=== PATIENT | female | born 1940 | race Hispanic/Latino ===

== ENCOUNTER 2016-12-04 16:17 | Inpatient (IN) | payer MEDICARE, BC ==
--- NOTE | 2016-12-04 16:48 | RAD ---
HISTORY: r/o PNA COMPARISON: No prior. FINDINGS: LUNGS: No active pulmonary disease. Low-normal lung volumes. No consolidation PLEURA: No significant pleural effusion identified, no pneumothorax apparent. CARDIOVASCULAR: Top-normal heart size top normal pulmonary vasculature OSSEOUS STRUCTURES: Bilateral shoulder arthrosis. Thoracic spondylosis VISUALIZED UPPER ABDOMEN: Normal. OTHER FINDINGS: None. IMPRESSION: No active disease. No pulmonary infiltrate
--- NOTE | 2016-12-04 17:08 | C.PDOC ---
History Of Present Illness Patient is a 76 y/o female, whose past medical history includes HTN, CAD s/p stent, presents to ED with complaints of shortness of breath for the last 2-3 months. Patient reports having shortness of breath with exertion, and reports associated intermittent chest heaviness. Notes being seen by PMD, Dr. Silveira, who referred patient to ER for further evaluation. Otherwise, denies any headache, dizziness or lightheadedness, fever, chills, cough, back pain, n/v/d, abdominal pain, lower extremity pain/swelling. No other complaints at this time. Time Seen by Provider: 12/04/16 16:27 Chief Complaint (Nursing): Shortness Of Breath History Per: Patient History/Exam Limitations: no limitations Onset/Duration Of Symptoms: Days (2-3 months) Current Symptoms Are (Timing): Still Present Exacerbating Factor(s): Exertion Associated Symptoms: Chest Pain (heaviness). denies: Fever, Chills, Sweating, Bloody Cough, Productive Cough, Heart Racing, Leg/Calf Pain, Ankle/Leg Swelling , Dizziness, Light-headedness, Anxiety, Tingling In Hands Or Face, Musle Spasms In Hands Or Feet Reports Recently: Treated By A Physician Recent travel outside of the [place]: No Additional History Per: Patient Past Medical History Reviewed: Historical Data, Nursing Documentation, Vital Signs Vital Signs: Last Vital Signs Temp 98.7 F 12/04/16 16:22 Pulse 54 L 12/04/16 16:22 Resp 18 12/04/16 17:01 BP 191/84 H 12/04/16 16:22 Pulse Ox 95 12/04/16 17:24 - Medical History PMH: Arthritis, CAD, HTN, Hypercholesterolemia Denies: Depression Surgical History: Appendectomy (pt was 11 yrs old), Cholecystectomy, Coronary Stent - [facility] CORONAR ARTERIOGR-2 CATH (09/30/12) FLUOROSCOPY OF LEFT HEART USING LOW OSMOLAR CONTRAST (10/27/16) FLUOROSCOPY OF MULT COR ART USING L OSM CONTRAST (10/27/16) LEFT HEART CARDIAC CATH (09/30/12) LT HEART ANGIOCARDIOGRAM (09/30/12) MEASURE OF CARDIAC SAMPL & PRESSURE, L HEART, PERC APPROACH (10/27/16) Family History: States: Unknown Family Hx - Social History Hx Tobacco Use: No Hx Alcohol Use: No Hx Substance Use: No Review Of Systems Except As Marked, All Systems Reviewed And Found Negative. Constitutional: Negative for: Fever, Chills Cardiovascular: Positive for: Chest Pain (intermittent chest heaviness). Negative for: Palpitations, Edema, Light Headedness Respiratory: Positive for: Shortness of Breath, SOB with Excertion. Negative for: Cough, Hemoptysis, Sputum, Wheezing Gastrointestinal: Negative for: Nausea, Vomiting, Abdominal Pain, Diarrhea Neurological: Negative for: Headache, Dizziness Physical Exam - Physical Exam Additional Physical Exam Comments: Constitutional: No acute distress. Head: Normocephalic. Atraumatic. Eyes: PERRL. ENT: Moist mucous membranes. Neck: Supple. Cardiovascular: Bradycardia. Radial pulse 2+ bilaterally. Chest: No tenderness. Respiratory: Clear to auscultation bilaterally. GI: Soft. Nontender. Nondistended. Back: No CVA tenderness. Musculoskeletal: No tenderness or swelling of extremities. Skin: No rash. Neurologic: Alert, no focal deficit. ED Course And Treatment - Laboratory Results Result Diagrams: 12/04/16 17:08 12/04/16 17:08 O2 Sat by Pulse Oximetry: 95 (on RA) Pulse Ox Interpretation: Normal Medical Decision Making Medical Decision Making: Blood work, CXR, EKG ordered and reviewed. EKG: Normal Sinus Rhythm at [address] wave elevation or depression. (+ )U wave. Spoke with Dr. Rubio, consult academic affairs vice president, who will see patient today. CXR HISTORY: r/o PNA COMPARISON: No prior. FINDINGS: LUNGS: No active pulmonary disease. Low-normal lung volumes. No consolidation PLEURA: No significant pleural effusion identified, no pneumothorax apparent. CARDIOVASCULAR: Top-normal heart size top normal pulmonary vasculature OSSEOUS STRUCTURES: Bilateral shoulder arthrosis. Thoracic spondylosis VISUALIZED UPPER ABDOMEN: Normal. OTHER FINDINGS: None. IMPRESSION: No active disease. No pulmonary infiltrate Disposition Discussed With : Lloyd Silveira Doctor Will See Patient In The: Hospital - Disposition Disposition: HOSPITALIZED Disposition Time: 17:40 Condition: GUARDED Forms: [facility] (Kenyan) - Clinical Impression Clinical Impression: Symptomatic bradycardia - Scribe Statement The provider has reviewed the documentation as recorded by the Scribcatherine Hunter All medical record entries made by the Scribe were at my direction and personally dictated by me. I have reviewed the chart and agree that the record accurately reflects my personal performance of the history, physical exam, medical decision making, and the department course for this patient. I have also personally directed, reviewed, and agree with the discharge instructions and disposition.
[2016-12-04 17:14] LABS: BASO % 0.5 % (0.0-2.0); EOS # 0.1 K/uL (0.0-0.7); EOS % 1.7 % (0.0-4.0); HEMATOCRIT 38.5 % (34.0-47.0); LYMPH # 2.1 K/uL (1.0-4.3); LYMPH % 31.5 % (20.0-40.0); MEAN CELL VOLUME 85.3 fL (81.0-99.0); MEAN CORPUSCULAR HEMOGLOBIN 28.4 pg (27.0-31.0); MEAN CORPUSCULAR HGB CONC 33.3 g/dL (33.0-37.0); MEAN PLATELET VOLUME 9.6 fL (7.2-11.7); MONO # 0.5 K/uL (0.0-0.8); NRBC % 0.1 % (0.0-2.0); RED CELL DISTRIBUTION WIDTH 14.4 % (11.5-14.5); WHITE BLOOD COUNT 6.6 K/uL (4.8-10.8)
[2016-12-04 17:21] LABS: CHLORIDE 102 mmol/L (98-107); SODIUM 140 mmol/L (132-148)
[2016-12-04 17:23] LABS: GFR AFRICAN-AMERICAN > 60
[2016-12-04 17:24] LABS: ALB/GLOB RATIO 1.6 (1.0-2.1); ALKALINE PHOSPHATASE 51 U/L (38-126); ALT/SGPT 31 U/L (9-52); AST/SGOT 19 U/L (14-36); BILIRUBIN,TOTAL 0.8 mg/dL (0.2-1.3); BLOOD UREA NITROGEN 18 mg/dL (7-17); CALCIUM 8.9 mg/dl (8.6-10.4); CARBON DIOXIDE 26 mmol/L (22-30); GLUCOSE,RANDOM 98 mg/dL (65-105); TOTAL PROTEIN 6.7 g/dL (6.3-8.3)
[2016-12-04] MEDS ORDERED: Enalaprilat 2.5 MG/2 ML IV PRN (18:59)
[2016-12-04] MEDS ORDERED: Enalaprilat 2.5 MG/2 ML ONE (19:04)
[2016-12-04] MEDS ORDERED: Albuterol HFA 90 mcg/actuation (8 g) IH PRN (19:29)
[2016-12-04] MEDS ORDERED: Denosumab 60 mg/ml Sol(Prolia) SC SCH (19:30)
[2016-12-04] MEDS ORDERED: Loperamide Hydrochloride 1 mg/5 ml Cup PO PRN (19:45)
[2016-12-04] MEDS ORDERED: Albuterol 0.083% Inhal Sol (2.5 mg/3 mL) UD IH SCH (20:00)
--- NOTE | 2016-12-04 20:35 | CP.PCM.CON ---
History of Present Illness - History of Present Illness History of Present Illness: 76 F admitted with Bradycardia (2:1 heart block) C/O Dyspnea with minimal exertion H/O CAD s/p stent Patient noticed symptoms since last 1-2 months Review of Systems - Constitutional Constitutional: Fatigue - EENT Eyes: absent: As Per HPI, Blind Spots, Blurred Vision, Change in Vision, Decreased Night Vision, Diplopia, Discharge, Dry Eye, Exophthalmos, Floaters, Irritation, Itchy Eyes, Loss of Peripheral Vision, Pain, Photophobia, Requires Corrective Lenses, Sees Flashes, Spots in Vision, Tunnel Vision, Other Visual Disturbances, Loss of Vision, Other Ears: absent: As Per HPI, Decreased Hearing, Ear Discharge, Ear Pain, Tinnitus, Abnormal Hearing, Disequilibrium, Dizziness, Other Nose/Mouth/Throat: absent: As Per HPI, Epistaxis, Nasal Congestion, Nasal Discharge, Nasal Obstruction, Nasal Trauma, Nose Pain, Post Nasal Drip, Sinus Pain, Sinus Pressure, Bleeding Gums, Change in Voice, Dental Pain, Dry Mouth, Dysphagia, Halitosis, Hoarsness, Lip Swelling, Mouth Lesions, Mouth Pain, Odynophagia, Sore Throat, Throat Swelling, Tongue Swelling, Facial Pain, Neck Pain, Neck Mass, Other - Cardiovascular Cardiovascular: Dyspnea on Exertion. absent: Chest Pain, Leg Edema - Respiratory Respiratory: Dyspnea. absent: Cough - Gastrointestinal Gastrointestinal: absent: Abdominal Pain - Musculoskeletal Musculoskeletal: Abnormal Gait. absent: As Per HPI, Arthralgias, Atrophy, Back Pain, Deformity, Joint Swelling, Limited Range of Motion, Loss of Height, Muscle Cramps, Muscle Weakness, Myalgias, Neck Pain, Numbness, Radiating Pain into Limb, Stiffness, Tingling, Other - Integumentary Integumentary: absent: As Per HPI, Acne, Alopecia, Bleeding Lesions, Change in Hair, Change in Nails, Change in Pigmentation, Changing Lesions, Dry Skin, Erythema, Furuncle, Hirsutism, Lesions, New Lesions, Non-Healing Lesions, Photosensitivity, Pruritus, Rash, Skin Pain, Skin Ulcer, Sores, Striae, Swelling , Unusual Bruising, Wounds, Jaundice, Other - Neurological Neurological: absent: As Per HPI, Abnormal Gait, Abnormal Hearing, Abnormal Movements, Abnormal Speech, Behavioral Changes, Burning Sensations, Confusion, Convulsions, Disequilibrium, Dizziness, Numbness, Focal Weakness, Frequent Falls , Headaches, Lack of Coordination, Loss of Vision, Memory Loss, Paresthesias, Radicular Pain, Restless Legs, Sensory Deficit, Syncope, Tingling, Tremor, Vertigo, Weakness, Other Visual Disturbances, Other - Psychiatric Psychiatric: absent: As Per HPI, Abnormal Sleep Pattern, Anhedonia, Anxiety, Auditory Hallucinations, Behavioral Changes, Change in Appetite, Change in Libido, Confusion, Depression, Difficulty Concentrating, Hallucinations, Homicidal Ideation, Hopelessness, Irritability, Memory Loss, Mood Swings, Panic Attacks, Paranoia, Suicidal Ideation, Visual Hallucinations, Tactile Hallucinations, Other Past Patient History - Infectious Disease Hx of Infectious Diseases: None - Past Social History Smoking Status: Never Smoked - CARDIAC Hx Cardiac Disorders: Yes Hx Hypercholesterolemia: Yes Hx Hypertension: Yes - HEENT Hx Cataracts: Yes (b/l cataract sx) - HEMATOLOGICAL/ONCOLOGICAL Hx Cancer: Yes (breast ca 30 yrs ago, bilateral breast implants inserted soon after) Hx Chemotherapy: No (no chemo no radiation) - MUSCULOSKELETAL/RHEUMATOLOGICAL Hx Arthritis: Yes - GASTROINTESTINAL Hx Gastroesophageal Reflux: Yes - PSYCHIATRIC Hx Depression: No Hx Substance Use: No - SURGICAL HISTORY Hx Appendectomy: Yes (pt was 11 yrs old) Hx Cholecystectomy: Yes Hx Coronary Stent: Yes - ANESTHESIA Hx Anesthesia: Yes Hx Anesthesia Reactions: No Hx Malignant Hyperthermia: No Meds Allergies/Adverse Reactions: Allergies Allergy/AdvReac Type Severity Reaction Status Date / Time Penicillins Allergy RASH Verified 12/04/16 16:20 pcn AdvReac RASH Uncoded 10/24/16 20:32 - Medications Medications: Current Medications Albuterol (Ventolin Hfa 90 Mcg/Actuation (8 G)) 2 puff IH Q4H PRN PRN Reason: Wheezing Albuterol Sulfate (Albuterol 0.083% Inhal Snow (2.5 Mg/3 Ml) Ud) 2.5 mg IH RQID STEFFEN Amlodipine Besylate (Norvasc) 5 mg PO STAT STA Stop: 12/04/16 20:27 Aspirin (Ecotrin) 81 mg PO DAILY STEFFEN Ciprofloxacin (Cipro) 500 mg PO BID STEFFEN Denosumab (Prolia) mg SC Q6M STEFFEN Enalaprilat (Vasotec) 2.5 mg IV Q8 PRN PRN Reason: HYPERTENSION Last Admin: 12/04/16 19:12 Dose: 2.5 mg Enoxaparin Sodium (Lovenox) 80 mg SC Q12 [facility] Home Med (Budesonide/Formoterol Fumarate [Symbicort 160-4.5 Mcg Inhaler]) 2 puff IH BID [facility] Home Med (Clobetasol Propionate/Emoll [Clobetasol Emollnt 0.05% Foam]) 50 gm TP BID [facility] Home Med (Levocetirizine Dihydrochloride [Levocetirizine Dihydrochloride]) 5 mg PO HS [facility] Home Med (Desloratadine [Desloratadine]) 5 mg PO DAILY [facility] Home Med (Fexofenadine Hcl [Fexofenadine Hcl]) 1 tab PO BID [facility] Sodium Chloride (Sodium Chloride 0.9%) 1,000 mls @ 60 mls/hr IV .[id number] STE[facility] Loperamide HCl (Imodium) 2 mg PO DAILY STEFFEN Loperamide HCl (Imodium) 1 mg PO TID PRN PRN Reason: DIARRHEA Montelukast Sodium (Singulair) 10 mg PO HS [facility] Pantoprazole Sodium (Protonix Ec Tab) 40 mg PO DAILY [facility] Rosuvastatin Calcium (Crestor) 10 mg PO HS [facility] Sucralfate (Carafate Tab) 1 gm PO QID [facility] Tiotropium [place] (Spiriva) 1 mcg IH RQD STE[facility] Tiotropium [place] (Spiriva Inhalation Handihaler Device) 1 inhaler INH ONCE ONE Stop: 12/05/16 08:01 Physical Exam - Head Exam Head Exam: ATRAUMATIC, NORMAL INSPECTION - Eye Exam Eye Exam: EOMI, PERRL Pupil Exam: NORMAL ACCOMODATION - ENT Exam ENT Exam: Mucous Membranes Moist, Normal Exam - Neck Exam Neck exam: Positive for: Normal Inspection - Respiratory Exam Respiratory Exam: Clear to Auscultation Bilateral, NORMAL BREATHING PATTERN - Cardiovascular Exam Cardiovascular Exam: Bradycardia, REGULAR RHYTHM, +S1, +S2. absent: JVD - GI/Abdominal Exam GI & Abdominal Exam: Normal Bowel Sounds, Soft - Neurological Exam Neurological exam: Alert, CN II-XII Intact, Reflexes Normal - Psychiatric Exam Psychiatric exam: Normal Mood - Skin Skin Exam: Warm Results - Vital Signs Recent Vital Signs: Last Vital Signs Temp 98.3 F 12/04/16 19:58 Pulse 44 L 12/04/16 20:10 Resp 22 12/04/16 19:58 BP 177/72 H 12/04/16 19:58 Pulse Ox 96 12/04/16 19:58 - Labs Result Diagrams: 12/06/16 08:17 12/06/16 08:17 Assessment & Plan - Assessment and Plan (Free Text) Assessment: 1. Symptomatic bradycardia 2. Dyspnea on minimal exertion 3. CAD h/o stent 4. HTN controlled 5. hyperlipidemia EP consult for PPM Pulmonary consult r/o PE IV Hydration Plan d/w PMD
--- NOTE | 2016-12-04 20:58 | CP.PCM.HP ---
History of Present Illness - History of Present Illness History of Present Illness: cc: fatigue, bradycardia Pt was seen at the office and was to come in after she was seen 3 days ago and Ranexa was discontinued to eliminate the medication as a cause for her bradycardia. Pt says she was still the same as 3 days ago despite discontinuation of the medication. Pt walks a few feet and is short of breath. Denies diaphoresis, acute chest pain, nausea, vomiting in the last few weeks. Pt had gone to [facility] 10/27/2016 where she had a cardiac cath that was unremarkable. Had given pt an idea that it might be what was causing her symptoms after all interventions including treating her for a possible exacerbation of bronchitis. Finally advised today to go to ER for evaluation and admission, end endorsed pt to ER MD as well as Interventional Cardio who had seen pt tonight. Present on Admission - Present on Admission Any Indicators Present on Admission: No History of DVT/PE: No History of Uncontrolled Diabetes: No Urinary Catheter: No Decubitus Ulcer Present: No Review of Systems - Review of Systems Systems not reviewed;Unavailable: Respiratory Distress (with prolonged conversation) - Constitutional Constitutional: Fatigue - EENT Eyes: As Per HPI Additional comments: + epistaxis 1-2x/day the last 4 days - Cardiovascular Cardiovascular: Slow Heart Rate (+ chest pressure, no radiating pain to jaw) - Respiratory Respiratory: Cough - Reproductive: Female Reproductive:Female: Amenorrhea (postmenopausal), Menopausal - Menstruation Menstruation: Amenorrhea - Neurological Neurological: Weakness Past Patient History - Infectious Disease Hx of Infectious Diseases: None - Past Medical History & Family History Past Medical History?: Yes - Past Social History Smoking Status: Never Smoked Cigar Use: No Alcohol: Social Home 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) - CARDIAC Hx Hypercholesterolemia: Yes Hx Hypertension: Yes Other/Comment: no history of CHF, + hx of angina/chest pain - PULMONARY Hx Respiratory Disorders: Yes Hx Asthma: Yes - NEUROLOGICAL Hx Neurological Disorder: No - HEENT Hx Cataracts: Yes (b/l cataract sx) Hx Epistaxis: Yes (1-2 x the last 4 days) - RENAL Hx Chronic Kidney Disease: No - ENDOCRINE/METABOLIC Hx Endocrine Disorders: No - HEMATOLOGICAL/ONCOLOGICAL Hx Cancer: Yes (breast ca 30 yrs ago, bilateral breast implants inserted soon after) Hx Chemotherapy: No (no chemo no radiation) - INTEGUMENTARY Hx Dermatological Problems: No - MUSCULOSKELETAL/RHEUMATOLOGICAL Hx Arthritis: Yes Other/Comment: s/p hip replacement, L in 2014 - GASTROINTESTINAL Hx Gastroesophageal Reflux: Yes - GENITOURINARY/GYNECOLOGICAL Hx Genitourinary Disorders: No - PSYCHIATRIC Hx Depression: No Hx Substance Use: No - SURGICAL HISTORY Hx Appendectomy: Yes (pt was 11 yrs old) Hx Cholecystectomy: Yes Hx Coronary Stent: Yes - ANESTHESIA Hx Anesthesia: Yes Hx Anesthesia Reactions: No Hx Malignant Hyperthermia: No Meds Allergies/Adverse Reactions: Allergies Allergy/AdvReac Type Severity Reaction Status Date / Time Penicillins Allergy RASH Verified 12/04/16 16:20 pcn AdvReac RASH Uncoded 10/24/16 20:32 Physical Exam - Constitutional Appears: In Acute Distress Additional comments: only when walking and with exertion - Head Exam Head Exam: ATRAUMATIC, NORMAL INSPECTION, NORMOCEPHALIC - Eye Exam Eye Exam: Normal appearance, PERRL Pupil Exam: NORMAL ACCOMODATION - ENT Exam ENT Exam: Mucous Membranes Moist, Normal Exam - Neck Exam Neck exam: Positive for: Normal Inspection - Respiratory Exam Respiratory Exam: Clear to Auscultation Bilateral Additional comments: good breath sounds - Cardiovascular Exam Cardiovascular Exam: Bradycardia, REGULAR RHYTHM, +S1, +S2 - GI/Abdominal Exam GI & Abdominal Exam: Normal Bowel Sounds - Rectal Exam Rectal Exam: Deferred - Extremities Exam Extremities exam: Positive for: normal inspection - Back Exam Back exam: NORMAL INSPECTION - Neurological Exam Neurological exam: CN II-XII Intact, Normal Gait, Oriented x3, Reflexes Normal - Psychiatric Exam Psychiatric exam: Normal Affect, Normal Mood - Skin Skin Exam: Dry, Normal Color, Warm Results - Vital Signs Recent Vital Signs: Last Vital Signs Temp 98.3 F 12/04/16 19:58 Pulse 44 L 12/04/16 20:10 Resp 22 12/04/16 19:58 BP 177/72 H 12/04/16 19:58 Pulse Ox 96 12/04/16 19:58 - Labs Result Diagrams: 12/04/16 17:08 12/04/16 17:08 - EKG Data EKG Interpreted by: Other (prolonged Qtc interval with U wave) Rate: Bradycardia - EKG Data When Compared to Previous EKG: Significant Changes - Impressions Impression: bradycardia, unknown etiology Assessment & Plan (1) Symptomatic bradycardia Assessment and Plan: consulted Cardio, Dr. Rubio, after endorsement this afternoon. Plan to rule out PE before any procedure and agree with Pulmonary consultation with Dr. Her Status: Acute Priority: High (2) Chest tightness or pressure Assessment and Plan: monitor O2 sat, and heart rate. Telemetry admission. Status: Acute Decision To Admit - Pt Status Changed To: Hospital Disposition Of: Inpatient - Admit Certification Admit to Inpatient:: After my assessment, the patient will require hospitalization for at least two midnights. This is because of the severity of symptoms shown, intensity of services needed, and/or the medical risk in this patient being treated as an outpatient. - InPatient: Physician Admission Certification:: I hereby certify that pt needs inpatient admission bec of the acuity of pt's symptoms which, if not addressed, will compromise pt's life and place pt's life in danger. - . Bed Request Type: Telemetry Admitting Physician: Lloyd Silveira
[2016-12-04] MEDS ORDERED: Iodixanol 320 MG/ML 100 ML BOTTLE IV ONE (21:20)
[2016-12-04] MEDS: Sodium Chloride 0.9% 1,000 ML IV SCH (21:49)
[2016-12-04] MEDS ORDERED: Home Med 1 UNIT (Levocetirizine Dihydrochloride [Levocetirizine Dihydrochloride] 5 MG) PO SCH (22:00)
[2016-12-04] MEDS ORDERED: Enoxaparin 80 mg Syringe SC SCH (22:00)
[2016-12-05 00:50] LABS: RBC URINE 1 /hpf (0-3); URINE BILIRUBIN NEGATIVE (NEGATIVE); URINE BLOOD NEGATIVE (NEGATIVE); URINE COLOR Yellow (YELLOW); URINE GLUCOSE (UA) NORMAL (Normal); URINE KETONE NEGATIVE (NEGATIVE); URINE LEUKOCYTE ESTERASE NEG Leu/uL (Negative); URINE PROTEIN NEGATIVE (NEGATIVE); URINE UROBILINOGEN NORMAL mg/dL (0.2-1.0); WBC URINE 1 /hpf (0-5)
[2016-12-05] MEDS ORDERED: Tiotropium 18 mcg Cap For Inhalation IH SCH (08:00)
[2016-12-05] MEDS: Albuterol 0.083% Inhal Sol (2.5 mg/3 mL) UD IH SCH ×3 (08:14→16:17)
--- NOTE | 2016-12-05 08:32 | CT ---
CTA chest PE protocol Indication: Rule out PE Technique: Contiguous axial images were obtained through the chest with intravenous contrast enhancement. Sagittal and coronal reconstructions were generated and reviewed. This CT exam was performed using 1 or more of the falling dose reduction techniques: Automated exposure control, adjustment of the MAA and/or kV according to patient size, and/or use of iterative reconstruction technique. IV Contrast: 100 mL Visipaque Radiation dose (DLP): 586.38 MGy-cm. Comparison: Chest x-ray performed 12/04/16 Findings: The mediastinal and hilar vascular structures appear within normal limits. Cardiomegaly. Small pericardial effusion. No large central or segmental pulmonary embolus evident. No focal consolidation. No pleural effusion. No pneumothorax. No suspicious pulmonary nodules measuring greater than 5 mm. Small hiatal hernia. Limited visualized portions of the upper abdomen appear grossly unremarkable. Gallbladder is not visualized, due to cholecystectomy. Bilateral breast prostheses. Numerous punctate calcifications throughout bilateral breast soft tissues. Question presence of spiculated soft tissue attenuation mass measuring approximately 15 mm, lower outer quadrant of the left breast (series 3, image 63) ; recommend dedicated breast imaging for further evaluation. Degenerative changes. Impression: No large central or segmental pulmonary embolism identified. No focal consolidation. No pleural effusion. No pneumothorax. Cardiomegaly. Small pericardial effusion. Spiculated soft tissue attenuation mass in the left breast. Recommend dedicated breast imaging. Malignant neoplasm cannot be excluded. Preliminary impression was provided by virtual radiologic.
--- NOTE | 2016-12-05 09:01 | CP.PCM.CON ---
History of Present Illness - History of Present Illness History of Present Illness: Dr. Rubio has asked me to see this patient with symptomatic bradycardia. Primary doctor is Dr. Ale Silveira. This is a pleasant 76 yo woman with a CV history of HTN, hypercholesterolemia, CAD with previous PCI. Her medical history also includes breast cancer with preivous bilateral breast implants. She has been plagued by dyspnea on exertion for severalmonths. Cardiac cath revealed no significant obstructive CAD. Echocardiogram revealed no significant valvular disease. She has been noted to be significantly bradycardic so recently her ranexa was discontinued but she has continued to have dyspena. They dyspnea is located in chest. No associated dizziness. No modifying facotors. Duration minutes. ECG reveals 2:1 AV block. Sinus rate has been 90-100 but ventricular response has been in 40's. Also of note, CTA to exclude presence of pulmonary embolism incidentally discovered a "spiculated mass" on lateral aspet of left breast. There are bilateral calcifications in both breast areas, but this 15mm mass in left upper outer portion of breast will need further investigation. She has previously had bilateral breast implants placed after mastectomy. PMEDx: HTN, Hypercholesterolemia, breast cancer s/p bilat mastectomy and implant , CAD, s/p PCI, s/p cataract, s/p L hip, OA, s/p CCY, s/p appy SocialHx: No current tobacco use, rare alcohol use FamilyHx: no premature CAD or sudden . ECG 12/04/16: SR at 96 with 2:1 block. QRS 90 NSRA Cath 10/27/16 LM ok LAD prox 50 RCA non-obstructive CxL non-obstrutive PAP 42/17, PCWP 12 CT chest 12/04/16 No PE spiculated L breast mass 15mm diffuse calcifications s/p bialteral breast implant Review of Systems - Constitutional Constitutional: absent: Chills - EENT Eyes: absent: Blind Spots, Diplopia Ears: absent: Decreased Hearing Nose/Mouth/Throat: absent: Nasal Obstruction, Nasal Trauma, Sinus Pain - Breasts Breasts: absent: Change in Shape - Cardiovascular Cardiovascular: Dyspnea on Exertion. absent: Claudication, Edema, Irregular Heart Rhythm, Leg Edema, Palpitations - Respiratory Respiratory: Dyspnea, Dyspnea on Exertion. absent: Hemoptysis, Wheezing - Gastrointestinal Gastrointestinal: absent: Abdominal Pain - Genitourinary Genitourinary: absent: Change in Urinary Stream - Musculoskeletal Musculoskeletal: Arthralgias - Integumentary Integumentary: absent: Erythema - Neurological Neurological: absent: Syncope - Psychiatric Psychiatric: absent: Anxiety, Confusion, Depression - Endocrine Endocrine: absent: Cold Intolorance, Heat Intolorance Past Patient History - Infectious Disease Hx of Infectious Diseases: None - Past Medical History & Family History Past Medical History?: Yes - Past Social History Smoking Status: Never Smoked Cigar Use: No Alcohol: Social Home 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) - CARDIAC Hx Hypercholesterolemia: Yes Hx Hypertension: Yes Other/Comment: no history of CHF, + hx of angina/chest pain - PULMONARY Hx Respiratory Disorders: Yes Hx Asthma: Yes - NEUROLOGICAL Hx Neurological Disorder: No - HEENT Hx Cataracts: Yes (b/l cataract sx) Hx Epistaxis: Yes (1-2 x the last 4 days) - RENAL Hx Chronic Kidney Disease: No - ENDOCRINE/METABOLIC Hx Endocrine Disorders: No - HEMATOLOGICAL/ONCOLOGICAL Hx Cancer: Yes (breast ca 30 yrs ago, bilateral breast implants inserted soon after) Hx Chemotherapy: No (no chemo no radiation) - INTEGUMENTARY Hx Dermatological Problems: No - MUSCULOSKELETAL/RHEUMATOLOGICAL Hx Arthritis: Yes Other/Comment: s/p hip replacement, L in 2014 - GASTROINTESTINAL Hx Gastroesophageal Reflux: Yes - GENITOURINARY/GYNECOLOGICAL Hx Genitourinary Disorders: No - PSYCHIATRIC Hx Depression: No Hx Substance Use: No - SURGICAL HISTORY Hx Appendectomy: Yes (pt was 11 yrs old) Hx Cholecystectomy: Yes Hx Coronary Stent: Yes - ANESTHESIA Hx Anesthesia: Yes Hx Anesthesia Reactions: No Hx Malignant Hyperthermia: No Meds Allergies/Adverse Reactions: Allergies Allergy/AdvReac Type Severity Reaction Status Date / Time Penicillins Allergy RASH Verified 12/04/16 16:20 pcn AdvReac RASH Uncoded 10/24/16 20:32 - Medications Medications: Current Medications Albuterol (Ventolin Hfa 90 Mcg/Actuation (8 G)) 2 puff IH Q4H PRN PRN Reason: Wheezing Albuterol Sulfate (Albuterol 0.083% Inhal [place] (2.5 Mg/3 Ml) Ud) 2.5 mg IH RQID STEFFEN Last Admin: 12/05/16 08:14 Dose: Not Given Denosumab (Prolia) mg SC Q6M STEFFEN Enalaprilat (Vasotec) 2.5 mg IV Q8 PRN PRN Reason: HYPERTENSION Last Admin: 12/04/16 19:12 Dose: 2.5 mg Heparin Sodium (Porcine) (Heparin) 5,000 units SC Q8 [facility] Home Med (Budesonide/Formoterol Fumarate [Symbicort 160-4.5 Mcg Inhaler]) 2 puff IH BID [facility] Home Med (Levocetirizine Dihydrochloride [Levocetirizine Dihydrochloride]) 5 mg PO HS [facility] Sodium Chloride (Sodium Chloride 0.9%) 1,000 mls @ 60 mls/hr IV .[id number] [facility] Last Admin: 12/04/16 21:49 Dose: 60 mls/hr Loperamide HCl (Imodium) 2 mg PO DAILY [facility] Loperamide HCl (Imodium) 1 mg PO TID PRN PRN Reason: DIARRHEA Montelukast Sodium (Singulair) 10 mg PO HS [facility] Last Admin: 12/04/16 21:49 Dose: 10 mg Pantoprazole Sodium (Protonix Ec Tab) 40 mg PO DAILY [facility] Rosuvastatin Calcium (Crestor) 10 mg PO HS [facility] Last Admin: 12/04/16 21:49 Dose: 10 mg Tiotropium [place] (Spiriva) 1 mcg IH RQD [facility] Physical Exam - Constitutional Appears: Well, Non-toxic - Head Exam Head Exam: ATRAUMATIC, NORMAL INSPECTION - Eye Exam Eye Exam: EOMI, Normal appearance, PERRL Pupil Exam: PERRL - ENT Exam ENT Exam: Mucous Membranes Moist - Neck Exam Neck exam: Positive for: Normal Inspection - Respiratory Exam Respiratory Exam: NORMAL BREATHING PATTERN. absent: Wheezes - Cardiovascular Exam Cardiovascular Exam: REGULAR RHYTHM, Systolic Murmur - GI/Abdominal Exam GI & Abdominal Exam: Normal Bowel Sounds - Neurological Exam Neurological exam: Alert, CN II-XII Intact, Oriented x3 - Psychiatric Exam Psychiatric exam: Normal Affect, Normal Mood - Skin Skin Exam: Normal Color, Warm Results - Vital Signs Recent Vital Signs: Last Vital Signs Temp 98.3 F 12/05/16 08:28 Pulse 48 L 12/05/16 08:28 Resp 20 12/05/16 08:28 BP 144/62 12/05/16 08:28 Pulse Ox 97 12/05/16 08:28 - Labs Result Diagrams: 12/04/16 17:08 08/24/17 17:08 Labs: Laboratory Results - last 24 hr 12/05/16 00:44 Urine Color Yellow Urine Clarity Clear Urine pH 5.0 Ur Specific [place] 1.010 Urine Protein Negative Urine Glucose (UA) Normal Urine Ketones Negative Urine Blood Negative Urine Nitrate Negative Urine Bilirubin Negative Urine Urobilinogen Normal Ur Leukocyte Esterase Neg Urine WBC (Auto) 1 Urine RBC (Auto) 1 Ur Squamous Epith Cells 2
[2016-12-05] MEDS: Pantoprazole 40 mg EC Tab PO SCH (09:14)
[2016-12-05] MEDS ORDERED: DESLORATADINE 5 MG PO SCH ×2 (10:00)
[2016-12-05] MEDS ORDERED: BUDESONIDE IH SCH (10:00)
[2016-12-05] MEDS ORDERED: FORMOTEROL FUMARATE IH SCH (10:00)
[2016-12-05] MEDS ORDERED: EMOLL TP SCH ×2 (10:00)
[2016-12-05] MEDS ORDERED: FEXOFENADINE HCL PO SCH ×2 (10:00)
[2016-12-05] MEDS ORDERED: CLOBETASOL PROPIONATE TP SCH ×2 (10:00)
[2016-12-05] MEDS ORDERED: Lidocaine 1% Inj (20ml) ONE (11:12)
[2016-12-05] MEDS ORDERED: Clindamycin 600mg/50ml NS 600 MG/50 ML BAG IVPB ONE (11:12)
[2016-12-05] MEDS ORDERED: Bacitracin 50,000 UNIT in Sodium Chloride 0.9% Irrig 1,000 ML IR SCH (11:18)
[2016-12-05] MEDS ORDERED: Lactated Ringer's 1,000 ML IV ONE (11:25)
[2016-12-05] MEDS ORDERED: Midazolam 2 MG/2 ML VIAL ONE (11:34)
[2016-12-05] MEDS ORDERED: Propofol 10 mg/ml Inj (20 ML) ONE (11:34)
[2016-12-05] MEDS ORDERED: Iohexol 240 (50 ml) ONE (11:55)
--- NOTE | 2016-12-05 11:59 | CP.PCM.CON ---
History of Present Illness - History of Present Illness History of Present Illness: Reason for consult: shortness of breath and r/o PE The patient is a 76 year old female with a past medical history of CAD s/p coronary stent placement, HTN, hypercholesterolemia who presented the emergency department last night for fatigue and dyspnea on exertion for the past 2-3 months. She also reported intermittent chest heaviness. Three days ago she saw her PMD (Dr. Silveira) who discontinued Ranexa as a possible cause of her bradycardia. She returned to Dr. Beltre office yesterday and her bradycardia had not resolved. She was sent from the office to the ED for further evaluation and admitted to the medical floor for telemetry monitoring. Patient seen and examined bedside this AM. As per patient, Dr. Conner (EP) will place pacemaker this afternoon. Shortness of breath most likely cardiac related (ventricular bradycardia secondary to AV block). PE is unlikely at this time. Patient denied chest pain, tachypnea, leg edema/pain, f/c. PMHx: Arthritis, CAD, HTN, Hypercholesterolemia, bilateral cataracts, breast cancer (30 years ago), GERD, OA Surg Hx: Appendectomy (at 11yo), cholecystectomy, coronary stent, cardiac cath , cataract surgery, mastectomy with reconstruction (breast implants), hip replacement Family hx: denies Social hx: denies tobacco and drug use, social ETOH use Allergies: penicillin (rash) PMD: Dr. Silveira ECG (12/04/16): sinus rhythm at 96 bpm with 2:1 AV block. CXR (12/04/16): No active disease. No pulmonary infiltrate CT Chest with IV contrast (12/04/16): No large central or segmental pulmonary embolism identified. No focal consolidation. No pleural effusion. No pneumothorax. Cardiomegaly. Small pericardial effusion. Spiculated soft tissue attenuation mass in the left breast. Recommend dedicated breast imaging. Malignant neoplasm cannot be excluded. Echo: LV EF 61% Cardiac Cath (10/27/16): Left main, RCA and CXL not obstructed, proximal LAD 50 % obstructed, Pulm artery pressure 42/, PCWP 12. 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) - CARDIAC Hx Hypercholesterolemia: Yes Hx Hypertension: Yes Other/Comment: no history of CHF, + hx of angina/chest pain - PULMONARY Hx Respiratory Disorders: Yes Hx Asthma: Yes - NEUROLOGICAL Hx Neurological Disorder: No - HEENT Hx Cataracts: Yes (b/l cataract sx) Hx Epistaxis: Yes (1-2 x the last 4 days) - RENAL Hx Chronic Kidney Disease: No - ENDOCRINE/METABOLIC Hx Endocrine Disorders: No - HEMATOLOGICAL/ONCOLOGICAL Hx Cancer: Yes (breast ca 30 yrs ago, bilateral breast implants inserted soon after) Hx Chemotherapy: No (no chemo no radiation) - INTEGUMENTARY Hx Dermatological Problems: No - MUSCULOSKELETAL/RHEUMATOLOGICAL Hx Arthritis: Yes Other/Comment: s/p hip replacement, L in 2014 - GASTROINTESTINAL Hx Gastroesophageal Reflux: Yes - GENITOURINARY/GYNECOLOGICAL Hx Genitourinary Disorders: No - PSYCHIATRIC Hx Depression: No Hx Substance Use: No - SURGICAL HISTORY Hx Appendectomy: Yes (pt was 11 yrs old) Hx Cholecystectomy: Yes Hx Coronary Stent: Yes - ANESTHESIA Hx Anesthesia: Yes Hx Anesthesia Reactions: No Hx Malignant Hyperthermia: No Meds Allergies/Adverse Reactions: Allergies Allergy/AdvReac Type Severity Reaction Status Date / Time Penicillins Allergy RASH Verified 12/04/16 16:20 pcn AdvReac RASH Uncoded 10/24/16 20:32 - Medications Medications: Current Medications Albuterol (Ventolin Hfa 90 Mcg/Actuation (8 G)) 2 puff IH Q4H PRN PRN Reason: Wheezing Albuterol Sulfate (Albuterol 0.083% Inhal [place] (2.5 Mg/3 Ml) Ud) 2.5 mg IH RQID STEFFEN Last Admin: 12/05/16 08:14 Dose: Not Given Denosumab (Prolia) mg SC Q6M [facility] Enalaprilat (Vasotec) 2.5 mg IV Q8 PRN PRN Reason: HYPERTENSION Last Admin: 12/04/16 19:12 Dose: 2.5 mg Heparin Sodium (Porcine) (Heparin) 5,000 units SC Q8 [facility] Home Med (Budesonide/Formoterol Fumarate [Symbicort 160-4.5 Mcg Inhaler]) 2 puff IH BID [facility] Home Med (Levocetirizine Dihydrochloride [Levocetirizine Dihydrochloride]) 5 mg PO HS [facility] Sodium Chloride (Sodium Chloride 0.9%) 1,000 mls @ 60 mls/hr IV .[id number] [facility] Last Admin: 12/04/16 21:49 Dose: 60 mls/hr Bacitracin 50,000 unit/ Sodium (Chloride) 1,000 mls @ 1,000 mls/hr IR .Q1H [facility] Stop: 12/05/16 12:17 Loperamide HCl (Imodium) 2 mg PO DAILY [facility] Last Admin: 12/05/16 09:14 Dose: Not Given Loperamide HCl (Imodium) 1 mg PO TID PRN PRN Reason: DIARRHEA Montelukast Sodium (Singulair) 10 mg PO [facility] Last Admin: 12/04/16 21:49 Dose: 10 mg Pantoprazole Sodium (Protonix Ec Tab) 40 mg PO DAILY [facility] Last Admin: 12/05/16 09:14 Dose: 40 mg Rosuvastatin Calcium (Crestor) 10 mg PO [facility] Last Admin: 12/04/16 21:49 Dose: 10 mg Tiotropium [place] (Spiriva) 1 mcg IH RQD [facility] Physical Exam - Head Exam Head Exam: ATRAUMATIC, NORMOCEPHALIC - Eye Exam Eye Exam: Normal appearance - ENT Exam ENT Exam: Mucous Membranes Moist - Neck Exam Neck exam: Positive for: Normal Inspection - Respiratory Exam Respiratory Exam: Clear to Auscultation Bilateral - Cardiovascular Exam Cardiovascular Exam: Bradycardia - Extremities Exam Extremities exam: Positive for: normal inspection Results - Vital Signs Recent Vital Signs: Last Vital Signs Temp 98.3 F 12/05/16 08:28 Pulse 48 L 12/05/16 08:28 Resp 20 12/05/16 08:28 BP 144/62 12/05/16 08:28 Pulse Ox 97 12/05/16 08:28 - Labs Result Diagrams: 12/04/16 17:08 12/04/16 17:08 Labs: Laboratory Results - last 24 hr 12/05/16 00:44 Urine Color Yellow Urine Clarity Clear Urine pH 5.0 Ur Specific [place] 1.010 Urine Protein Negative Urine Glucose (UA) Normal Urine Ketones Negative Urine Blood Negative Urine Nitrate Negative Urine Bilirubin Negative Urine Urobilinogen Normal Ur Leukocyte Esterase Neg Urine WBC (Auto) 1 Urine RBC (Auto) 1 Ur Squamous Epith Cells 2 Assessment & Plan (1) Dyspnea Status: Acute Comment: most likely cardiac related. For pacemaker insertion. Continue nebulizer treatment. Pulmonary function test as outpatient. Pulmonary embolism unlikely (2) Chest tightness or pressure Status: Acute (3) Symptomatic bradycardia Status: Acute Priority: High
--- NOTE | 2016-12-05 12:31 | CARD ---
APPROVED REPORT EKG Measurement Heart [id number] <Conclusion> Sinus bradycardia Otherwise normal ECG
[2016-12-05] MEDS ORDERED: HYDROmorphone 0.5 mg/0.5 ml ISec IVP PRN (12:47)
--- NOTE | 2016-12-05 12:50 | PCM.OP ---
Operative Report - Operative Report Date of Surgery/Procedure: 12/05/16 Time of Surgery/Procedure: 12:49 Surgeon: DIPIKA Anesthesia/Sedation: MONITORED CARE Pre-Operative Diagnosis: av BLOCK Post-Operative Diagnosis: AV bLOCK Indication for Surgery: SYMPTOMATIC BRADYCARDIA Operative Findings: psa REPORTED Procedure/Operation Description: ddd ppm VIA AXILLARY VEIN ACCESS Estimated Blood Loss: 30 Complications: NONE Discharge & Condition: none
[2016-12-05] MEDS ORDERED: Oxycodone/Acetaminophen 5/325 mg Tab PO PRN (12:54)
--- NOTE | 2016-12-05 13:27 | CARD ---
APPROVED REPORT EXAM: Two-dimensional and M-mode echocardiogram with Doppler and color Doppler. Other Information Quality : GoodRhythm : Bradycardia Technically limited study due to body habitus. INDICATION Dyspnea Chest Pain BREAST IMPLANT RISK FACTORS Hypertension Hyperlipidemia M-Mode DIMENSIONS RVDd2.19 (2.1-3.2cm)Left Atrium (MM)4.33 (2.5-4.0cm) IVSd0.84 (0.7-1.1cm)Aortic Root2.14 (2.2-3.7cm) LVDd4.96 (4.0-5.6cm)Aortic Cusp Exc.1.52 (1.5-2.0cm) PWd0.82 (0.7-1.1cm)FS (%) 33 % LVDs3.32 (2.0-3.8cm)LVEF (%)61 (>50%) Aortic Valve AoV Peak Wsxnlsfb951.5cm/sAoV VTI48.3cmAO Peak GR.15mmHg AO Mean GR.8mmHg Mitral Valve MV E Hysaqvas360.2cm/sMV A Uhhnyfos61.0cm/sE/A ratio1.4 TDI E/Lateral E'0.0E/Medial E'0.0 Tricuspid Valve TR Peak [id number]/sTR Peak Gr.26jxXwYLNX48hvVy <Conclusion> TECHNICALLY DIFFICULT STUDT, SHOWING MILDLY DILATED LA , GROSSLY NORMAL LV FUNCTION. CALCIFIC AORTIC VALVE AND ROOT. MODERATE MR. CLINICAL CORRELATION ADVISED.
--- NOTE | 2016-12-05 14:11 | RAD ---
HISTORY: pacemaker COMPARISON: 12/04/2016 FINDINGS: LUNGS: There is subsegmental atelectasis in the right mid lung and left mid lung. There is mild pulmonary venous congestion. PLEURA: There is a small right pneumothorax status post placement of right-sided dual lead transvenous permanent pacing device, the pleural margin reaches the posterior and of the 4th rib. . No large pleural effusions. CARDIOVASCULAR: There is mild cardiomegaly. There is interval placement of a right-sided dual lead transvenous permanent pacing device with leads terminating in the right atrium and right ventricle. OSSEOUS STRUCTURES: No significant abnormalities. VISUALIZED UPPER ABDOMEN: Normal. OTHER FINDINGS: None. IMPRESSION: Status post placement of a right-sided dual lead transvenous permanent pacing device, small right pneumothorax. Critical findings were discussed with Dr Amish Cardona on 12/05/2016 at 2:05 p.m.
--- NOTE | 2016-12-05 16:50 | RAD ---
HISTORY: pneumothorax COMPARISON: 12/05/2016 at 12:59 p.m.. FINDINGS: LUNGS: The lungs are well inflated. There is linear scarring in the left lung. PLEURA: No significant pleural effusion identified. There is interval increase in size of right-sided pneumothorax which now appears moderate in size with the pleural margin seen at the posterior end of the 5th rib. CARDIOVASCULAR: The heart is normal in size. There is stable position of a right-sided dual lead transvenous permanent pacing device. OSSEOUS STRUCTURES: No significant abnormalities. VISUALIZED UPPER ABDOMEN: Normal. OTHER FINDINGS: None. IMPRESSION: Interval mild increase in size of a right-sided pneumothorax which now appears moderate in size with the pleural margin at the posterior end of the 5th rib.
--- NOTE | 2016-12-05 16:57 | CP.PCM.CON ---
<BrianTaylor AguileraNatalie - Last Filed: 12/05/16 19:01> History of Present Illness - History of Present Illness History of Present Illness: Patient is a 76 year old female with medical history of HTN, CAD s/p stent placement, hypercholesteremia, who is transferred to the ICU from the floor for monitoring s/p chest tube placement for right-sided pneumothorax. Patient has a 2-3 month history of fatigue and SOB, presented to the ED by her PMD, Dr. Silveira, and was found to have bradycardia and AV block. Patient had a pacemaker placed today, 12/05/16, with Dr. Conner. Following the procedure, patient was found to have a pneumothorax. PMD: Dr. Silveira PMHx: HTN, CAD s/p stent placement (2008), hypercholesteremia SurgHx: appendectomy, cholecystectomy, coronary stent (2008), cardiac cath, cataract surgery, mastectomy with reconstruction, hip replacement FamHx: denies SocHx: denies tobacco, drug use; social drinker Allergies: penicillins Review of Systems - Constitutional Constitutional: absent: Fever, Headache - Cardiovascular Cardiovascular: absent: Chest Pain, Dyspnea - Respiratory Respiratory: Pain with Coughing (sore s/p chest tube and pacemaker placement). absent: Cough, Dyspnea - Gastrointestinal Gastrointestinal: Nausea (s/p chest tube placement). absent: Abdominal Pain, Constipation, Diarrhea, Vomiting - Genitourinary Genitourinary: absent: Dysuria - Musculoskeletal Additional comments: Sore s/p chest tube and pacemaker placement. 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) - CARDIAC Hx Cardiac Disorders: Yes (CAD) Hx Hypercholesterolemia: Yes Hx Hypertension: Yes - PULMONARY Hx Respiratory Disorders: Yes Hx Asthma: Yes - NEUROLOGICAL Hx Neurological Disorder: No - HEENT Hx Cataracts: Yes (b/l cataract sx) Hx Epistaxis: Yes (1-2 x the last 4 days) - RENAL Hx Chronic Kidney Disease: No - ENDOCRINE/METABOLIC Hx Endocrine Disorders: No - HEMATOLOGICAL/ONCOLOGICAL Hx Cancer: Yes (breast ca 30 yrs ago, bilateral breast implants inserted soon after) Hx Chemotherapy: No (no chemo no radiation) - INTEGUMENTARY Hx Dermatological Problems: No - MUSCULOSKELETAL/RHEUMATOLOGICAL Hx Arthritis: Yes - GASTROINTESTINAL Hx Gastroesophageal Reflux: Yes - GENITOURINARY/GYNECOLOGICAL Hx Genitourinary Disorders: No - PSYCHIATRIC Hx Depression: No Hx Substance Use: No - SURGICAL HISTORY Hx Appendectomy: Yes (pt was 11 yrs old) Hx Cholecystectomy: Yes Hx Coronary Stent: Yes - ANESTHESIA Hx Anesthesia: Yes Hx Anesthesia Reactions: No Hx Malignant Hyperthermia: No Meds Home Medications: Home Medication List Medication Instructions Recorded Confirmed Type Albuterol 0.083% [Albuterol 0.083% 2.5 mg IH RQ6 12/07/16 Rx Inhal Snow (2.5 mg/3 ml) UD] Albuterol HFA [Ventolin HFA 90 2 puff IH Q4H PRN inhaler 12/07/16 Rx mcg/actuation (8 g)] Montelukast [Singulair] 10 mg PO HS tab 12/07/16 Rx Rosuvastatin Calcium [Crestor] 10 mg PO HS tab 12/07/16 Rx Valsartan [Diovan] 80 mg PO DAILY #0 12/07/16 12/04/16 Rx Allergies/Adverse Reactions: Allergies Allergy/AdvReac Type Severity Reaction Status Date / Time Penicillins Allergy RASH Verified 12/04/16 16:20 pcn AdvReac RASH Uncoded 10/24/16 20:32 - Medications Medications: Current Medications Albuterol (Ventolin Hfa 90 Mcg/Actuation (8 G)) 2 puff IH Q4H PRN PRN Reason: Wheezing Albuterol Sulfate (Albuterol 0.083% Inhal Snow (2.5 Mg/3 Ml) Ud) 2.5 mg IH RQID [facility] Last Admin: 12/05/16 16:17 Dose: 2.5 mg Denosumab (Prolia) mg SC Q6M [facility] Enalaprilat (Vasotec) 2.5 mg IV Q8 PRN PRN Reason: HYPERTENSION Last Admin: 12/04/16 19:12 Dose: 2.5 mg Heparin Sodium (Porcine) (Heparin) 5,000 units SC Q8 [facility] Last Admin: 12/05/16 14:15 Dose: Not Given Home Med (Budesonide/Formoterol Fumarate [Symbicort 160-4.5 Mcg Inhaler]) 2 puff IH BID [facility] Home Med (Levocetirizine Dihydrochloride [Levocetirizine Dihydrochloride]) 5 mg PO [facility] Sodium Chloride (Sodium Chloride 0.9%) 1,000 mls @ 60 mls/hr IV .[id number] [facility] Last Admin: 12/04/16 21:49 Dose: 60 mls/hr Loperamide HCl (Imodium) 2 mg PO DAILY [facility] Last Admin: 12/05/16 09:14 Dose: Not Given Loperamide HCl (Imodium) 1 mg PO TID PRN PRN Reason: DIARRHEA Montelukast Sodium (Singulair) 10 mg PO [facility] Last Admin: 12/04/16 21:49 Dose: 10 mg Oxycodone/Acetaminophen (Percocet 5/325 Mg Tab) 1 tab PO Q4H PRN PRN Reason: Pain, moderate (4-7) Stop: 12/08/16 12:55 Pantoprazole Sodium (Protonix Ec Tab) 40 mg PO DAILY [facility] Last Admin: 12/05/16 09:14 Dose: 40 mg Rosuvastatin Calcium (Crestor) 10 mg PO [facility] Last Admin: 12/04/16 21:49 Dose: 10 mg Tiotropium [place] (Spiriva) 1 mcg IH RQD [facility] Physical Exam - Head Exam Head Exam: ATRAUMATIC, NORMAL INSPECTION - Eye Exam Eye Exam: EOMI, Normal appearance - ENT Exam ENT Exam: Mucous Membranes Moist - Neck Exam Neck exam: Positive for: Normal Inspection - Respiratory Exam Respiratory Exam: Decreased Breath Sounds, Clear to Auscultation Bilateral, NORMAL BREATHING PATTERN. absent: Rales, Rhonchi, Wheezes - Cardiovascular Exam Cardiovascular Exam: REGULAR RHYTHM, +S1, +S2 - GI/Abdominal Exam GI & Abdominal Exam: Normal Bowel Sounds, Soft. absent: Tenderness - Extremities Exam Extremities exam: Positive for: normal inspection, pedal pulses present. Negative for: pedal edema - Neurological Exam Neurological exam: Alert, Oriented x3 - Psychiatric Exam Psychiatric exam: Normal Affect, Normal Mood - Skin Skin Exam: Dry, Intact, Normal Color, Warm Results - Vital Signs Recent Vital Signs: Last Vital Signs Temp 97.6 F 12/05/16 15:20 Pulse 90 12/05/16 15:20 Resp 20 12/05/16 15:20 BP 129/74 12/05/16 15:20 Pulse Ox 98 12/05/16 15:20 - Labs Result Diagrams: 12/04/16 17:08 12/04/16 17:08 Labs: Laboratory Results - last 24 hr 12/05/16 00:44 Urine Color Yellow Urine Clarity Clear Urine pH 5.0 Ur Specific [place] 1.010 Urine Protein Negative Urine Glucose (UA) Normal Urine Ketones Negative Urine Blood Negative Urine Nitrate Negative Urine Bilirubin Negative Urine Urobilinogen Normal Ur Leukocyte Esterase Neg Urine WBC (Auto) 1 Urine RBC (Auto) 1 Ur Squamous Epith Cells 2 Assessment & Plan (1) Pneumothorax Assessment and Plan: Patient is a 76 year old female with medical history of HTN, CAD s/p stent placement, hypercholesteremia, who is transferred to the ICU from the floor for monitoring s/p chest tube placement for right-sided pneumothorax. Patient has a 2-3 month history of fatigue and SOB, presented to the ED by her PMD, Dr. Silveira, and was found to have bradycardia. Patient had a pacemaker placed today, 12/05/16 , with Dr. Conner. Continue medical management and monitor. Neuro: alert, orientedx3 Pulm: Pneumothorax - CXR: right-sided pneumothorax, moderate size with pleural margin at posterior end of 5th rib. - Surgery consulted- Dr. Sousa, help appreciated - s/p chest tube placement, with suction - Continue medical management- albuterol, ventolin, symbicort, singulaire, spiriva, - Continue O2 via nasal cannula - F/U ABG and CXR CV: S/P Pacemaker placement - Cardiology: Dr. Rubio, Dr. Conner - Continue management for bradycardia - Continue: vasotec, crestor - Continue IV Fluids Endo: no acute issues GI: no acute issues - Continue Protonix Heme: no acute issues Renal: no acute issues ID: no acute issues Prophylaxis: - DVT: SCDs, Heparin 5000sc Q8 - GI: Protonix Status: Acute <Joey Puga - Last Filed: 12/09/16 22:18> History of Present Illness - History of Present Illness History of Present Illness: [facility] Pt with increasing Ptx s/p PPM to have CT placed by surgery. Tx to ICU for monitoring. Add.- Pt is 76 yo female with hx HTN/CAD /Stent /HLD and with fatigue and bradycardia. Pt had PPM placed and noted to have R Ptx. Repeat cxr on NRB showed increasing ptx. and surgery consulted for CT. Pt denied sob . Admits some right chest discomfort ROS- asnoted All-PCN Social- no tob/ etoh/ drugs Meds- reviewed fH- Unknown Alert eldery female, NAD Neck- no jvd Lungs- bilat bs Heart-rr ABd- benign eXt- nontender Neuro- nonfocal Labs, EKG, [id number] A&P Right Ptx s/p PPM S/P Bradycardia HTN HLD CAD /Stents Admit to ICU repeat cxr s/p CT analgesia prn DVT prophylaxis Meds - Medications Medications: Current Medications Albuterol (Ventolin Hfa 90 Mcg/Actuation (8 G)) 2 puff IH Q4H PRN PRN Reason: Wheezing Albuterol Sulfate (Albuterol 0.083% Inhal Snow (2.5 Mg/3 Ml) Ud) 2.5 mg IH RQID [facility] Last Admin: 12/05/16 16:17 Dose: 2.5 mg Denosumab (Prolia) mg SC Q6M [facility] Enalaprilat (Vasotec) 2.5 mg IV Q8 PRN PRN Reason: HYPERTENSION Last Admin: 12/04/16 19:12 Dose: 2.5 mg Heparin Sodium (Porcine) (Heparin) 5,000 units SC Q8 [facility] Last Admin: 12/05/16 14:15 Dose: Not Given Home Med (Budesonide/Formoterol Fumarate [Symbicort 160-4.5 Mcg Inhaler]) 2 puff IH BID [facility] Home Med (Levocetirizine Dihydrochloride [Levocetirizine Dihydrochloride]) 5 mg PO HS [facility] Sodium Chloride (Sodium Chloride 0.9%) 1,000 mls @ 60 mls/hr IV .[id number] [facility] Last Admin: 12/04/16 21:49 Dose: 60 mls/hr Loperamide HCl (Imodium) 2 mg PO DAILY [facility] Last Admin: 12/05/16 09:14 Dose: Not Given Loperamide HCl (Imodium) 1 mg PO TID PRN PRN Reason: DIARRHEA Montelukast Sodium (Singulair) 10 mg PO HS [facility] Last Admin: 12/04/16 21:49 Dose: 10 mg Oxycodone/Acetaminophen (Percocet 5/325 Mg Tab) 1 tab PO Q4H PRN PRN Reason: Pain, moderate (4-7) Stop: 12/08/16 12:55 Pantoprazole Sodium (Protonix Ec Tab) 40 mg PO DAILY [facility] Last Admin: 12/05/16 09:14 Dose: 40 mg Rosuvastatin Calcium (Crestor) 10 mg PO HS [facility] Last Admin: 12/04/16 21:49 Dose: 10 mg Tiotropium [place] (Spiriva) 1 mcg IH RQD [facility] Results - Vital Signs Recent Vital Signs: Last Vital Signs Temp 97.6 F 12/05/16 15:20 Pulse 90 12/05/16 15:20 Resp 20 12/05/16 15:20 BP 129/74 12/05/16 15:20 Pulse Ox 98 12/05/16 15:20 - Labs Result Diagrams: 12/07/16 06:24 12/07/16 06:19 Labs: Laboratory Results - last 24 hr 12/05/16 00:44 Urine Color Yellow Urine Clarity Clear Urine pH 5.0 Ur Specific [place] 1.010 Urine Protein Negative Urine Glucose (UA) Normal Urine Ketones Negative Urine Blood Negative Urine Nitrate Negative Urine Bilirubin Negative Urine Urobilinogen Normal Ur Leukocyte Esterase Neg Urine WBC (Auto) 1 Urine RBC (Auto) 1 Ur Squamous Epith Cells 2
--- NOTE | 2016-12-05 18:45 | CP.PCM.PN ---
Subjective - Date & Time of Evaluation Date of Evaluation: 12/05/16 Time of Evaluation: 18:42 - Subjective Subjective: Pt successfully underwent pacemaker insertion, R side, today, after PE ruled out last night via CT angiogram. Incidental finding of spiculated mass on the L breast which, upon clarification with Dr. Freeman, radiologist on duty today at [facility] ([facility] noted said "mass" to be located at the lateral inferior axilla/axillary tail, L breast. He surmised that it is probably a calcified lymph node or scarring. > Development of pneumothorax after procedure, which i was notified at or around 3pm. Discussed events with Cardio and Pulmonary, and follow on CXR showed increasing size of pneumothorax Intensivisit evaluation at the time showed pt to be comfortable but on O2 by non-rebreather mask. Informed of plans to minimize further complicataions by pulmonary, and found surgical residents at bedside in the initial stages of putting in chest tube when I saw pt approx 1.5 hours later. Pt was comfortable and tolerated the procedure well. Gave orders for IV morphine for pain control if necessary. Objective - Vital Signs/Intake and Output Vital Signs (last 24 hours): Temp Pulse Resp BP Pulse Ox 97.6 F 90 20 129/74 98 12/05/16 15:20 12/05/16 15:20 12/05/16 15:20 12/05/16 15:20 12/05/16 15:20 Intake and Output: 12/05/16 12/05/16 06:59 18:59 Intake Total 530 Balance 530 - Medications Medications: Current Medications Albuterol (Ventolin Hfa 90 Mcg/Actuation (8 G)) 2 puff IH Q4H PRN PRN Reason: Wheezing Albuterol Sulfate (Albuterol 0.083% Inhal Snow (2.5 Mg/3 Ml) Ud) 2.5 mg IH RQID [facility] Last Admin: 12/05/16 16:17 Dose: 2.5 mg Denosumab (Prolia) mg SC Q6M [facility] Enalaprilat (Vasotec) 2.5 mg IV Q8 PRN PRN Reason: HYPERTENSION Last Admin: 12/04/16 19:12 Dose: 2.5 mg Heparin Sodium (Porcine) (Heparin) 5,000 units SC Q8 [facility] Last Admin: 12/05/16 14:15 Dose: Not Given Home Med (Budesonide/Formoterol Fumarate [Symbicort 160-4.5 Mcg Inhaler]) 2 puff IH BID [facility] Home Med (Levocetirizine Dihydrochloride [Levocetirizine Dihydrochloride]) 5 mg PO [facility] Sodium Chloride (Sodium Chloride 0.9%) 1,000 mls @ 60 mls/hr IV .[id number] [facility] Last Admin: 12/04/16 21:49 Dose: 60 mls/hr Loperamide HCl (Imodium) 2 mg PO DAILY [facility] Last Admin: 12/05/16 09:14 Dose: Not Given Loperamide HCl (Imodium) 1 mg PO TID PRN PRN Reason: DIARRHEA Montelukast Sodium (Singulair) 10 mg PO [facility] Last Admin: 12/04/16 21:49 Dose: 10 mg Oxycodone/Acetaminophen (Percocet 5/325 Mg Tab) 1 tab PO Q4H PRN PRN Reason: Pain, moderate (4-7) Stop: 12/08/16 12:55 Pantoprazole Sodium (Protonix Ec Tab) 40 mg PO DAILY [facility] Last Admin: 12/05/16 09:14 Dose: 40 mg Rosuvastatin Calcium (Crestor) 10 mg PO [facility] Last Admin: 12/04/16 21:49 Dose: 10 mg Tiotropium [place] (Spiriva) 1 mcg IH RQD [facility] - Labs Labs: PT 11.6 SECONDS (9.7-12.2) 12/04/16 17:08 INR 1.0 12/04/16 17:08 APTT 32 SECONDS (21-34) 12/04/16 17:08 - Constitutional Appears: No Acute Distress - Head Exam Head Exam: NORMAL INSPECTION, NORMOCEPHALIC - Eye Exam Eye Exam: Normal appearance Pupil Exam: NORMAL ACCOMODATION - ENT Exam ENT Exam: Mucous Membranes Moist, Normal Exam - Neck Exam Neck Exam: Normal Inspection - Respiratory Exam Respiratory Exam: Decreased Breath Sounds, NORMAL BREATHING PATTERN - Cardiovascular Exam Cardiovascular Exam: REGULAR RHYTHM - GI/Abdominal Exam GI & Abdominal Exam: Soft - Rectal Exam Rectal Exam: Deferred - Extremities Exam Extremities Exam: Full ROM, Normal Inspection - Neurological Exam Neurological Exam: Alert, Awake, CN II-XII Intact, Oriented x3 Neuro motor strength exam: Left Upper Extremity: 5, Right Upper Extremity: 4, Left Lower Extremity: 5, Right Lower Extremity: 5 - Psychiatric Exam Psychiatric exam: Normal Affect, Normal Mood - Skin Skin Exam: Dry, Intact, Normal Color, Warm Assessment and Plan (1) Pneumothorax Assessment & Plan: s/p chest tube placement. Will re-evaluate daily. Status: Acute (2) Symptomatic bradycardia Assessment & Plan: appears improved after PPM insertion Status: Resolved (3) Chest tightness or pressure Status: Resolved (4) Hypertension Assessment & Plan: will monitor Status: Chronic
--- NOTE | 2016-12-05 19:07 | CP.PCM.CON ---
History of Present Illness - History of Present Illness History of Present Illness: Cardiothoracic Surgery Consult Note for Dr. Sousa Reason for consult: R pneumothorax 76 F with PMH of s/p pacemaker placement, CAD s/p coronary stent placement, HTN , hypercholesterolemia who presented the emergency department last night for fatigue and shortness of breath. Today, patient had pacemaker placement with Dr. Conner this afternoon. After the procedure, patient had a chest xray which showed R pneumothorax. During interview, patient denied SOB, chest pain, tachypnea, palpitations, fever/chills, abd pain. Admits to nausea. Chest tube was placed at bedside. Patient tolerated the procedure. PMD: Dr. Silveira PMH: Arthritis, CAD, HTN, Hypercholesterolemia, bilateral cataracts, breast cancer (30 years ago), GERD, OA Meds: As per EMR Allergies: penicillin (rash) PSH: Pacemaker plaement, Appendectomy, cholecystectomy, coronary stents, cardiac cath, cataract surgery, mastectomy with reconstruction (breast implants) , hip replacement FH: denies Social: denies tobacco and drug use, social ETOH use Review of Systems - Review of Systems All systems: reviewed and no additional remarkable complaints except (nausea) Past Patient History - Infectious Disease Hx of Infectious Diseases: None - Past Medical History & Family History Past Medical History?: Yes - Past Social History Smoking Status: Never Smoked Cigar Use: No Alcohol: Social 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) - CARDIAC Hx Cardiac Disorders: Yes (CAD) Hx Hypercholesterolemia: Yes Hx Hypertension: Yes - PULMONARY Hx Respiratory Disorders: Yes Hx Asthma: Yes - NEUROLOGICAL Hx Neurological Disorder: No - HEENT Hx Cataracts: Yes (b/l cataract sx) Hx Epistaxis: Yes (1-2 x the last 4 days) - RENAL Hx Chronic Kidney Disease: No - ENDOCRINE/METABOLIC Hx Endocrine Disorders: No - HEMATOLOGICAL/ONCOLOGICAL Hx Cancer: Yes (breast ca 30 yrs ago, bilateral breast implants inserted soon after) Hx Chemotherapy: No (no chemo no radiation) - INTEGUMENTARY Hx Dermatological Problems: No - MUSCULOSKELETAL/RHEUMATOLOGICAL Hx Arthritis: Yes - GASTROINTESTINAL Hx Gastroesophageal Reflux: Yes - GENITOURINARY/GYNECOLOGICAL Hx Genitourinary Disorders: No - PSYCHIATRIC Hx Depression: No Hx Substance Use: No - SURGICAL HISTORY Hx Appendectomy: Yes (pt was 11 yrs old) Hx Cholecystectomy: Yes Hx Coronary Stent: Yes - ANESTHESIA Hx Anesthesia: Yes Hx Anesthesia Reactions: No Hx Malignant Hyperthermia: No Meds Allergies/Adverse Reactions: Allergies Allergy/AdvReac Type Severity Reaction Status Date / Time Penicillins Allergy RASH Verified 12/04/16 16:20 pcn AdvReac RASH Uncoded 10/24/16 20:32 - Medications Medications: Current Medications Albuterol (Ventolin Hfa 90 Mcg/Actuation (8 G)) 2 puff IH Q4H PRN PRN Reason: Wheezing Albuterol Sulfate (Albuterol 0.083% Inhal Snow (2.5 Mg/3 Ml) Ud) 2.5 mg IH RQ6 [facility] Denosumab (Prolia) mg SC Q6M [facility] Enalaprilat (Vasotec) 2.5 mg IV Q8 PRN PRN Reason: HYPERTENSION Last Admin: 12/04/16 19:12 Dose: 2.5 mg Famotidine (Pepcid) 20 mg IVP Q12 [facility] Heparin Sodium (Porcine) (Heparin) 5,000 units SC Q8 [facility] Last Admin: 12/05/16 14:15 Dose: Not Given Home Med (Budesonide/Formoterol Fumarate [Symbicort 160-4.5 Mcg Inhaler]) 2 puff IH BID [facility] Home Med (Levocetirizine Dihydrochloride [Levocetirizine Dihydrochloride]) 5 mg PO HS [facility] Sodium Chloride (Sodium Chloride 0.9%) 1,000 mls @ 60 mls/hr IV .[id number] [facility] Last Admin: 12/04/16 21:49 Dose: 60 mls/hr Loperamide HCl (Imodium) 2 mg PO DAILY [facility] Last Admin: 12/05/16 09:14 Dose: Not Given Loperamide HCl (Imodium) 1 mg PO TID PRN PRN Reason: DIARRHEA Montelukast Sodium (Singulair) 10 mg PO HS [facility] Last Admin: 12/04/16 21:49 Dose: 10 mg Morphine Sulfate (Morphine) 1 mg IV Q4 PRN PRN Reason: Pain, moderate (4-7) Ondansetron HCl (Zofran Inj) 4 mg IVP DAILY@ONCE PRN PRN Reason: Nausea/Vomiting Last Admin: 12/05/16 19:03 Dose: 4 mg Oxycodone/Acetaminophen (Percocet 5/325 Mg Tab) 1 tab PO Q4H PRN PRN Reason: Pain, moderate (4-7) Stop: 12/08/16 12:55 Pantoprazole Sodium (Protonix Ec Tab) 40 mg PO DAILY [facility] Last Admin: 12/05/16 09:14 Dose: 40 mg Rosuvastatin Calcium (Crestor) 10 mg PO HS [facility] Last Admin: 12/04/16 21:49 Dose: 10 mg Tiotropium [place] (Spiriva) 1 mcg IH RQD [facility] Physical Exam - Constitutional Appears: No Acute Distress - Head Exam Head Exam: ATRAUMATIC, NORMOCEPHALIC - Eye Exam Eye Exam: Normal appearance - ENT Exam ENT Exam: Mucous Membranes Moist - Respiratory Exam Respiratory Exam: Decreased Breath Sounds (on Right), NORMAL BREATHING PATTERN. absent: Accessory Muscle Use, Respiratory Distress Additional comments: horizonatal supraclavicular scar from pacemaker placement r sided chest tube at midaxillary line - Cardiovascular Exam Cardiovascular Exam: Tachycardia - GI/Abdominal Exam GI & Abdominal Exam: Soft. absent: Distended, Firm, Guarding, Hernia, Rebound, Rigid, Tenderness - Extremities Exam Extremities exam: Positive for: pedal pulses present. Negative for: calf tenderness - Back Exam Back exam: absent: CVA tenderness (L), CVA tenderness (R) - Neurological Exam Neurological exam: Alert, CN II-XII Intact, Oriented x3 - Psychiatric Exam Psychiatric exam: Normal Affect, Normal Mood - Skin Skin Exam: Dry, Normal Color, Warm Results - Vital Signs Recent Vital Signs: Last Vital Signs Temp 97.6 F 12/05/16 15:20 Pulse 90 12/05/16 15:20 Resp 20 12/05/16 15:20 BP 129/74 12/05/16 15:20 Pulse Ox 98 12/05/16 15:20 - Labs Result Diagrams: 12/04/16 17:08 12/04/16 17:08 Labs: Laboratory Results - last 24 hr 12/05/16 00:44 Urine Color Yellow Urine Clarity Clear Urine pH 5.0 Ur Specific [place] 1.010 Urine Protein Negative Urine Glucose (UA) Normal Urine Ketones Negative Urine Blood Negative Urine Nitrate Negative Urine Bilirubin Negative Urine Urobilinogen Normal Ur Leukocyte Esterase Neg Urine WBC (Auto) 1 Urine RBC (Auto) 1 Ur Squamous Epith Cells 2 Assessment & Plan - Assessment and Plan (Free Text) Plan: 76 F with PMH of s/p pacemaker placement, CAD s/p coronary stent placement, HTN , hypercholesterolemia with R pneumothorax, s/p chest tube placement -Continuous Suction -f/u CXR at 2044 and in AM -Antiemetics/Analgesics -Will STUART Almodovar PGY1 Procedures - Chest Tube Chest Tube Location: Mid-Axillary Right Size of Tube (cm): 28 Tube Sutured to Skin: Yes Sterile Dressing Applied: Yes Anesthesia: Lidocaine 1% Volume Anesthetic (mls): 20 Incision Made With: #11 blade Post Procedure: sutured to skin, sterile dressing applied, air occlusive dressing [place] of Air [place]: Yes Tube Drainage: blood Amount of Initial Drainage: 3 Post Procedure CXR?: Yes Patient Tolerated Procedure: Yes
[2016-12-05] MEDS ORDERED: Fluticasone-Salmeterol 250-50mcg Diskus INH SCH (20:00)
[2016-12-05] MEDS: Sodium Chloride 0.9% 1,000 ML IV SCH (20:00)
--- NOTE | 2016-12-05 22:07 | CP.PCM.PN ---
Subjective - Date & Time of Evaluation Date of Evaluation: 12/05/16 Time of Evaluation: 20:00 - Subjective Subjective: Patient s/p PPM for Heart block S/P Pneumothorax now with chest tube Patient hemodynamically stable/ Objective - Vital Signs/Intake and Output Vital Signs (last 24 hours): Temp Pulse Resp BP Pulse Ox 97.6 F 90 20 129/74 98 12/05/16 15:20 12/05/16 15:20 12/05/16 15:20 12/05/16 15:20 12/05/16 15:20 Intake and Output: 12/05/16 12/06/16 18:59 06:59 Intake Total 530 Balance 530 - Medications Medications: Current Medications Albuterol (Ventolin Hfa 90 Mcg/Actuation (8 G)) 2 puff IH Q4H PRN PRN Reason: Wheezing Albuterol Sulfate (Albuterol 0.083% Inhal [place] (2.5 Mg/3 Ml) Ud) 2.5 mg IH RQ6 [facility] Denosumab (Prolia) mg SC Q6M [facility] Enalaprilat (Vasotec) 2.5 mg IV Q8 PRN PRN Reason: HYPERTENSION Last Admin: 12/04/16 19:12 Dose: 2.5 mg Famotidine (Pepcid) 20 mg IVP Q12 [facility] Heparin Sodium (Porcine) (Heparin) 5,000 units SC Q8 [facility] Last Admin: 12/05/16 14:15 Dose: Not Given Sodium Chloride (Sodium Chloride 0.9%) 1,000 mls @ 60 mls/hr IV .[id number] [facility] Last Admin: 12/04/16 21:49 Dose: 60 mls/hr Loperamide HCl (Imodium) 1 mg PO TID PRN PRN Reason: DIARRHEA Loratadine (Claritin) 10 mg PO DAILY [facility] Montelukast Sodium (Singulair) 10 mg PO HS [facility] Last Admin: 12/04/16 21:49 Dose: 10 mg Morphine Sulfate (Morphine) 1 mg IV Q4 PRN PRN Reason: Pain, moderate (4-7) Last Admin: 12/05/16 20:34 Dose: 1 mg Ondansetron HCl (Zofran Inj) 4 mg IVP DAILY@ONCE PRN PRN Reason: Nausea/Vomiting Last Admin: 08/25/17 19:03 Dose: 4 mg Pantoprazole Sodium (Protonix Ec Tab) 40 mg PO DAILY [facility] Last Admin: 12/05/16 09:14 Dose: 40 mg Rosuvastatin Calcium (Crestor) 10 mg PO HS [facility] Last Admin: 12/04/16 21:49 Dose: 10 mg Fluticasone/Salmeterol (Advair Diskus 250/50) 1 puff INH RQ12 [facility] Tiotropium [place] (Spiriva) 18 mcg IH RQD [facility] - Labs Labs: PT 11.6 SECONDS (9.7-12.2) 12/04/16 17:08 INR 1.0 12/04/16 17:08 APTT 32 SECONDS (21-34) 12/04/16 17:08 - Head Exam Head Exam: NORMAL INSPECTION - Eye Exam Eye Exam: EOMI, PERRL Pupil Exam: NORMAL ACCOMODATION - ENT Exam ENT Exam: Mucous Membranes Moist - Neck Exam Neck Exam: Full ROM, Normal Inspection - Respiratory Exam Additional comments: S/P Chest tube - Cardiovascular Exam Cardiovascular Exam: REGULAR RHYTHM, +S1, +S2 - GI/Abdominal Exam GI & Abdominal Exam: Soft, Normal Bowel Sounds - Neurological Exam Neurological Exam: Alert, Oriented x3 - Skin Skin Exam: Warm Assessment and Plan - Assessment and Plan (Free Text) Assessment: 1. Pneumo thorax s/p Chest tube 2. Hx of CAD and stents 3. HTN 4. Hyperlipidemia Will continue to monitor
--- NOTE | 2016-12-05 23:32 | CP.PCM.CON ---
History of Present Illness - History of Present Illness History of Present Illness: Attending: Will Torres MD Reason for Consult: Critical care Management Chief Complaint: Transferred to ICU after chest tube placement The patient was seen and examined in the ICU. HPI: This is a 76 years old female with hx of CAD, HTN, [facility]16 with dx of Symptomatic Bradycardia. She underwent a DDD permanent Pace maker Placement via the right Axilla vein access by Dr Cardona on 12/05/16. A mild Pneumothorax was seen on Follow up Chest X Ray. Repeat X Ray showed some worsening, So right side chest tube was inserted by the Cardiothoracic Surgical team, and the patient was transferred to the ICU to be followed. The patient referred Tolerable pain to the surgical site and she has some cough on movement. PSH: CAD s/p Coronary Stent placement; HTN; HLD; Arthritis PSH: Appendecxtomy; Cholecystectomyl Coronary stent placement. SH: No illegal drug use; No alcohol use; No smoking of cigarettes FH: Unknown family HX Allergies: PCN Review of Systems - Constitutional Constitutional: absent: Chills, Fatigue, Fever, Headache - EENT Eyes: absent: Itchy Eyes, Pain, Photophobia, Requires Corrective Lenses Ears: absent: Decreased Hearing, Ear Discharge, Tinnitus Nose/Mouth/Throat: absent: Epistaxis, Nasal Congestion, Sinus Pain, Sinus Pressure - Cardiovascular Cardiovascular: Dyspnea, Lightheadedness (and Chest heaaviness). absent: Chest Pain Additional comments: SOB and chest heaviness - Respiratory Respiratory: Cough, Dyspnea. absent: Hemoptysis, Wheezing, Chest Congestion - Gastrointestinal Gastrointestinal: absent: Constipation, Diarrhea, Nausea, Vomiting - Genitourinary Genitourinary: absent: Dysuria, Flank Pain, Hematuria, Urinary Frequency - Musculoskeletal Musculoskeletal: absent: Arthralgias, Back Pain, Muscle Weakness - Integumentary Integumentary: absent: Skin Ulcer, Sores, Striae, Swelling - Neurological Neurological: absent: Confusion, Focal Weakness, Headaches, Weakness - Psychiatric Psychiatric: absent: Anxiety, Depression, Panic Attacks - Endocrine Endocrine: absent: Palpitations, Polydipsia, Polyphagia, Polyuria - Hematologic/Lymphatic Hematologic: absent: Easy Bleeding, Easy Bruising Past Patient History - Infectious Disease Hx of Infectious Diseases: None - Past Medical History & Family History Past Medical History?: Yes - Past Social History Smoking Status: Never Smoked Cigar Use: No Alcohol: Social Drugs: Denies 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[place]) - CARDIAC Hx Cardiac Disorders: Yes (CAD) Hx Hypercholesterolemia: Yes Hx Hypertension: Yes - PULMONARY Hx Respiratory Disorders: Yes Hx Asthma: Yes - NEUROLOGICAL Hx Neurological Disorder: No - HEENT Hx Cataracts: Yes (b/l cataract sx) Hx Epistaxis: Yes (1-2 x the last 4 days) - RENAL Hx Chronic Kidney Disease: No - ENDOCRINE/METABOLIC Hx Endocrine Disorders: No - HEMATOLOGICAL/ONCOLOGICAL Hx Cancer: Yes (breast ca 30 yrs ago, bilateral breast implants inserted soon after) Hx Chemotherapy: No (no chemo no radiation) - INTEGUMENTARY Hx Dermatological Problems: No - MUSCULOSKELETAL/RHEUMATOLOGICAL Hx Arthritis: Yes - GASTROINTESTINAL Hx Gastroesophageal Reflux: Yes - GENITOURINARY/GYNECOLOGICAL Hx Genitourinary Disorders: No - PSYCHIATRIC Hx Depression: No Hx Substance Use: No - SURGICAL HISTORY Hx Appendectomy: Yes (pt was 11 yrs old) Hx Cholecystectomy: Yes Hx Coronary Stent: Yes - ANESTHESIA Hx Anesthesia: Yes Hx Anesthesia Reactions: No Hx Malignant Hyperthermia: No Meds Allergies/Adverse Reactions: Allergies Allergy/AdvReac Type Severity Reaction Status Date / Time Penicillins Allergy RASH Verified 12/04/16 16:20 pcn AdvReac RASH Uncoded 10/24/16 20:32 - Medications Medications: Current Medications Albuterol (Ventolin Hfa 90 Mcg/Actuation (8 G)) 2 puff IH Q4H PRN PRN Reason: Wheezing Albuterol Sulfate (Albuterol 0.083% Inhal [place] (2.5 Mg/3 Ml) Ud) 2.5 mg IH RQ6 [facility] Denosumab (Prolia) mg SC Q6M [facility] Enalaprilat (Vasotec) 2.5 mg IV Q8 PRN PRN Reason: HYPERTENSION Last Admin: 12/04/16 19:12 Dose: 2.5 mg Famotidine (Pepcid) 20 mg IVP Q12 [facility] Last Admin: 12/05/16 22:04 Dose: 20 mg Heparin Sodium (Porcine) (Heparin) 5,000 units SC Q8 [facility] Last Admin: 12/05/16 22:04 Dose: 5,000 units Sodium Chloride (Sodium Chloride 0.9%) 1,000 mls @ 60 mls/hr IV .[id number] [facility] Last Admin: 12/04/16 21:49 Dose: 60 mls/hr Loperamide HCl (Imodium) 1 mg PO TID PRN PRN Reason: DIARRHEA Loratadine (Claritin) 10 mg PO DAILY [facility] Montelukast Sodium (Singulair) 10 mg PO HS [facility] Last Admin: 12/05/16 22:04 Dose: 10 mg Morphine Sulfate (Morphine) 1 mg IV Q4 PRN PRN Reason: Pain, moderate (4-7) Last Admin: 12/05/16 20:34 Dose: 1 mg Ondansetron HCl (Zofran Inj) 4 mg IVP DAILY@ONCE PRN PRN Reason: Nausea/Vomiting Last Admin: 12/05/16 19:03 Dose: 4 mg Pantoprazole Sodium (Protonix Ec Tab) 40 mg PO DAILY [facility] Last Admin: 12/05/16 09:14 Dose: 40 mg Rosuvastatin Calcium (Crestor) 10 mg PO HS [facility] Last Admin: 12/05/16 22:03 Dose: 10 mg Fluticasone/Salmeterol (Advair Diskus 250/50) 1 puff INH RQ12 [facility] Last Admin: 12/05/16 22:02 Dose: 1 puff Tiotropium [place] (Spiriva) 18 mcg IH RQD [facility] Physical Exam - Constitutional Appears: No Acute Distress - Head Exam Head Exam: ATRAUMATIC, NORMAL INSPECTION, NORMOCEPHALIC - Eye Exam Eye Exam: EOMI, Normal appearance Pupil Exam: NORMAL ACCOMODATION, PERRL - ENT Exam ENT Exam: Mucous Membranes Moist, Normal Exam, Normal External Ear Exam, Normal Oropharynx - Neck Exam Neck exam: Positive for: Full Rom, Normal Inspection. Negative for: Lymphadenopathy, Tenderness - Respiratory Exam Respiratory Exam: Clear to Auscultation Bilateral. absent: Rales, Rhonchi, Wheezes Additional comments: Right chest Swollen from the Axilliae ,site of chest tube insertion, to norris- lateral chest wall Crepitus sensation on palpation of the swollen region. - Cardiovascular Exam Cardiovascular Exam: REGULAR RHYTHM, +S1, +S2 - GI/Abdominal Exam GI & Abdominal Exam: Normal Bowel Sounds, Soft. absent: Mass, Tenderness - Rectal Exam Rectal Exam: Deferred - Extremities Exam Extremities exam: Positive for: normal inspection. Negative for: calf tenderness, joint swelling - Back Exam Back exam: NORMAL INSPECTION. absent: CVA tenderness (L), CVA tenderness (R) - Neurological Exam Neurological exam: Alert, CN II-XII Intact, Oriented x3, Reflexes Normal - Psychiatric Exam Psychiatric exam: Normal Affect, Normal Mood - Skin Skin Exam: Dry, Intact, Normal Color, Warm Results - Vital Signs Recent Vital Signs: Last Vital Signs Temp 97.6 F 12/05/16 15:20 Pulse 90 12/05/16 15:20 Resp 20 12/05/16 15:20 BP 129/74 12/05/16 15:20 Pulse Ox 98 12/05/16 15:20 - Labs Result Diagrams: 12/04/16 17:08 12/04/16 17:08 Labs: Laboratory Results - last 24 hr 12/05/16 00:44 Urine Color Yellow Urine Clarity Clear Urine pH 5.0 Ur Specific [place] 1.010 Urine Protein Negative Urine Glucose (UA) Normal Urine Ketones Negative Urine Blood Negative Urine Nitrate Negative Urine Bilirubin Negative Urine Urobilinogen Normal Ur Leukocyte Esterase Neg Urine WBC (Auto) 1 Urine RBC (Auto) 1 Ur Squamous Epith Cells 2 - Imaging and Cardiology Chest x-ray Status: Image reviewed by me, Report reviewed by me Additional comment: Chest tube in place at the Right Pleural with tip towards the right border the Heart, Subcutaneous emphysema at the right upper chest wall Assessment & Plan - Assessment and Plan (Free Text) Plan: 76 years old female with hx of CAD, HTN, [facility] with dx of Symptomatic Bradycardia. She underwent a DDD permanent Pace maker Placement and developed a Pneumothorax. A right side Chest tube was inserted and the patient was transferred to the ICU to be followed. #. Symptomatic Bradycardia s/p DDD PPM placement. Pacing and capturing well - Cardiac monitoring - Cardiology following #. Right Pneumothorax s/p Right chest Tube with Pneumovac drainage. Right lung re-expanded - Continue Pneumocac suctioning - Cardiothoracic Surgery following #. Subcutaneous Emphysema probably caused by a fistula( Broncho-Subcutaneous - Follow For Sign of Progression. If progression She may need a drain to remove the air. - Repeat Chest X Ray #. GERD - Pepcid #. DVT Prophylaxis with Heparin #. Code Status: Full - Date & Time Date: 12/05/16 Time: 23:32
[2016-12-06] MEDS: Albuterol 0.083% Inhal Sol (2.5 mg/3 mL) UD IH SCH ×4 (01:20→20:10)
[2016-12-06] MEDS: Sodium Chloride 0.9% 1,000 ML IV SCH ×2 (06:19→12:18)
--- NOTE | 2016-12-06 06:48 | RAD ---
HISTORY: chest tube COMPARISON: Portable chest 12/05/2016 FINDINGS: LUNGS: Pacemaker again identified. Trace atelectasis is appreciate the right infrahilar space with linear atelectasis or fibrosis at the mid to inferior left lung zone. No left-sided infiltrate. PLEURA: Mild to moderate right pneumothorax is diminished now extending to the 4th rather than 5th posterior right rib medially. No left pneumothorax. No pleural effusion bilaterally. . CARDIOVASCULAR: Normal. OSSEOUS STRUCTURES: No significant abnormalities. VISUALIZED UPPER ABDOMEN: Normal. OTHER FINDINGS: None. IMPRESSION: Diminished right pneumothorax. Continued clinical and radiographic monitoring are advised. The minimal right infrahilar atelectasis developing.
--- NOTE | 2016-12-06 07:02 | RAD ---
HISTORY: f/u pneumo, s/p chest tube COMPARISON: Portable chest 12/05/2016 18:31 p.m. FINDINGS: LUNGS: Linear atelectasis question at the inferior right lung zone with no definite interval infiltrate appreciated this time. Parotid pacemaker again evident. PLEURA: No significant pleural effusion identified, no pneumothorax apparent. CARDIOVASCULAR: Normal. OSSEOUS STRUCTURES: No significant abnormalities. VISUALIZED UPPER ABDOMEN: Normal. OTHER FINDINGS: None. IMPRESSION: No acute infiltrate is appreciate although linear atelectasis identified in the right lung zone. Pacemaker again evident.
--- NOTE | 2016-12-06 07:15 | CP.PCM.PN ---
Subjective - Date & Time of Evaluation Date of Evaluation: 12/06/16 Time of Evaluation: 06:10 - Subjective Subjective: Cardiothoracic Surgery Progress Note for Dr. Sousa Patient seen and examined at bedside. Overnight, patient developed mild soft tissue edema over right chest possible subcutaneous emphysema. Edema did not get worse since onset. Will continue to monitor for chages. Patient states she has R side pain at chest tube site but controlled with medication. Patient tolerating diet. Denies sob, cp, difficulty breathing, palpitations. Patient is on 4L NC with O2 sat of 97%. Objective - Vital Signs/Intake and Output Vital Signs (last 24 hours): Temp Pulse Resp BP Pulse Ox 97.6 F 93 H 19 158/66 H 94 L 12/05/16 15:20 12/06/16 06:24 12/06/16 06:24 12/06/16 06:24 12/06/16 06:24 Intake and Output: 12/06/16 12/06/16 06:59 18:59 Intake Total 900 Output Total 1000 Balance -100 - Medications Medications: Current Medications Albuterol (Ventolin Hfa 90 Mcg/Actuation (8 G)) 2 puff IH Q4H PRN PRN Reason: Wheezing Albuterol Sulfate (Albuterol 0.083% Inhal [place] (2.5 Mg/3 Ml) Ud) 2.5 mg IH RQ6 [facility] Last Admin: 12/06/16 01:20 Dose: 2.5 mg Denosumab (Prolia) mg SC Q6M [facility] Enalaprilat (Vasotec) 2.5 mg IV Q8 PRN PRN Reason: HYPERTENSION Last Admin: 12/04/16 19:12 Dose: 2.5 mg Famotidine (Pepcid) 20 mg IVP Q12 [facility] Last Admin: 12/05/16 22:04 Dose: 20 mg Heparin Sodium (Porcine) (Heparin) 5,000 units SC Q8 [facility] Last Admin: 12/06/16 06:17 Dose: 5,000 units Sodium Chloride (Sodium Chloride 0.9%) 1,000 mls @ 60 mls/hr IV .[id number] [facility] Last Admin: 12/06/16 06:19 Dose: Not Given Loperamide HCl (Imodium) 1 mg PO TID PRN PRN Reason: DIARRHEA Loratadine (Claritin) 10 mg PO DAILY [facility] Montelukast Sodium (Singulair) 10 mg PO HS [facility] Last Admin: 12/05/16 22:04 Dose: 10 mg Morphine Sulfate (Morphine) 1 mg IV Q4 PRN PRN Reason: Pain, moderate (4-7) Last Admin: 12/06/16 06:16 Dose: 1 mg Ondansetron HCl (Zofran Inj) 4 mg IVP DAILY@ONCE PRN PRN Reason: Nausea/Vomiting Last Admin: 12/05/16 19:03 Dose: 4 mg Pantoprazole Sodium (Protonix Ec Tab) 40 mg PO DAILY [facility] Last Admin: 12/05/16 09:14 Dose: 40 mg Rosuvastatin Calcium (Crestor) 10 mg PO HS [facility] Last Admin: 12/05/16 22:03 Dose: 10 mg Fluticasone/Salmeterol (Advair Diskus 250/50) 1 puff INH RQ12 [facility] Last Admin: 12/05/16 22:02 Dose: 1 puff Tiotropium [place] (Spiriva) 18 mcg IH RQD [facility] - Labs Labs: PT 11.6 SECONDS (9.7-12.2) 12/04/16 17:08 INR 1.0 12/04/16 17:08 APTT 32 SECONDS (21-34) 12/04/16 17:08 - Constitutional Appears: No Acute Distress - Head Exam Head Exam: ATRAUMATIC, NORMOCEPHALIC - Eye Exam Eye Exam: Normal appearance - ENT Exam ENT Exam: Mucous Membranes Moist - Neck Exam Neck Exam: Full ROM - Respiratory Exam Respiratory Exam: Chest Wall Tenderness, Clear to Ausculation Bilateral, NORMAL BREATHING PATTERN. absent: Accessory Muscle Use, Respiratory Distress Additional comments: breath sounds on R have improved chest tube at r midaxillary line mild edema over r chest wall, stable at this time R supraclavicular scar from pacemaker insertion - Cardiovascular Exam Cardiovascular Exam: REGULAR RHYTHM - GI/Abdominal Exam GI & Abdominal Exam: Soft. absent: Tenderness - Extremities Exam Extremities Exam: Normal Capillary Refill. absent: Calf Tenderness - Back Exam Back Exam: absent: CVA tenderness (L), CVA tenderness (R) - Neurological Exam Neurological Exam: Alert, Awake, CN II-XII Intact, Oriented x3 - Psychiatric Exam Psychiatric exam: Normal Affect, Normal Mood - Skin Skin Exam: Dry, Intact, Normal Color, Warm Assessment and Plan - Assessment and Plan (Free Text) Plan: 76 F with PMH of s/p pacemaker placement, CAD s/p coronary stent placement, HTN , hypercholesterolemia with R pneumothorax, s/p chest tube placement -Continuous Suction -f/u CXR this AM -Antiemetics/Analgesics -Continue to monitor R soft tissue edema -Will STUART Almodovar PGY1
[2016-12-06] MEDS ORDERED: Tiotropium 18 mcg Cap For Inhalation IH SCH (08:00)
[2016-12-06 08:24] LABS: BASO % 0.2 % (0.0-2.0); EOS # 0.1 K/uL (0.0-0.7); EOS % 0.7 % (0.0-4.0); HEMATOCRIT 35.3 % (34.0-47.0); LYMPH # 1.1 K/uL (1.0-4.3); MEAN CELL VOLUME 85.7 fL (81.0-99.0); MEAN CORPUSCULAR HEMOGLOBIN 28.3 pg (27.0-31.0); MEAN PLATELET VOLUME 9.9 fL (7.2-11.7); MONO # 0.8 K/uL (0.0-0.8); MONO % 9.1 % (0.0-10.0); RED CELL DISTRIBUTION WIDTH 14.5 % (11.5-14.5); WHITE BLOOD COUNT 8.7 K/uL (4.8-10.8)
[2016-12-06 08:58] LABS: CHLORIDE 102 mmol/L (98-107); SODIUM 139 mmol/L (132-148)
[2016-12-06 08:59] LABS: POTASSIUM 4.4 mmol/L (3.6-5.2)
[2016-12-06 09:01] LABS: ALB/GLOB RATIO 1.4 (1.0-2.1); ALKALINE PHOSPHATASE 58 U/L (38-126); AST/SGOT 43 U/L (14-36); BLOOD UREA NITROGEN 13 mg/dL (7-17); CARBON DIOXIDE 28 mmol/L (22-30); GFR AFRICAN-AMERICAN > 60; GLUCOSE,RANDOM 148 mg/dL (65-105); TOTAL PROTEIN 6.2 g/dL (6.3-8.3)
[2016-12-06 09:02] LABS: ALT/SGPT 50 U/L (9-52); CALCIUM 8.7 mg/dl (8.6-10.4); MAGNESIUM 1.9 mg/dL (1.6-2.3); PHOSPHOROUS 3.4 mg/dL (2.5-4.5)
--- NOTE | 2016-12-06 09:45 | CT ---
PROCEDURE: CT Chest without contrast HISTORY: ptx COMPARISON: None. TECHNIQUE: Contiguous axial images were obtained through the chest without intravenous contrast enhancement. Sagittal and coronal reconstructions were performed. Radiation dose (DLP): 931 mGy-cm. This CT exam was performed using one or more of the following dose reduction techniques: Automated exposure control, adjustment of the mA and/or kV according to patient size, and/or use of iterative reconstruction technique. FINDINGS: LUNGS: Interval atelectasis identified at the right lower lobe with chest tube inserted posteriorly, terminating posterior to the plane of the right mainstem bronchus. In the right pleural space. Limited bilateral basilar dependent atelectasis appreciate. MEDIASTINUM: A mild right pneumothorax identified as previously documented in chest radiograph also performed 12/05/2016 12:59 p.m.. Please see separate portable chest radiograph also performed 12/06/2016 for better comparison. No left pneumothorax. Mild pericardial effusion appreciate with minimal left pleural effusion. Cardiomegaly is stable. Right-sided pericardial pacemaker is again identified with degenerative the right pectoralis region and 2 leads in identified terminating in the region the right heart. PLEURA: As above BONES: No fracture. No destructive lesion. Multilevel thoracic spondylosis identified. UPPER ABDOMEN: Grossly unremarkable. OTHER FINDINGS: None. IMPRESSION: 1. Mild right pneumothorax identified. Right-sided chest tube in position as discussed above with minimal bilateral pleural effusion noted. No left pneumothorax. 2. Bilateral basilar dependent atelectasis. Prior cardiac pacemaker identified in position in the interval. 3. Bilateral subglandular breast implantation again evident with numerous granulomas scattered throughout both breasts, potentially a cosmetic sequelae versus acquired pathology.
[2016-12-06] MEDS: Pantoprazole 40 mg EC Tab PO SCH (10:00)
[2016-12-06] MEDS ORDERED: Lidocaine 2% Inj (20ml) ONE (11:28)
[2016-12-06] MEDS ORDERED: Lidocaine 1% Inj (20ml) INFIL ONE (11:55)
--- NOTE | 2016-12-06 12:12 | RAD ---
HISTORY: post chest tube removal COMPARISON: Portable chest 12/06/2016 FINDINGS: LUNGS: Trace atelectasis in the medial left base which diminishes in nearly resolved. No acute infiltrate. Node definitive pleural effusion bilaterally. Limited right pneumothorax is further diminished with right chest tube now removed. PLEURA: As discussed above. CARDIOVASCULAR: Stable cardiomediastinal silhouette including pacemaker. OSSEOUS STRUCTURES: No significant abnormalities. VISUALIZED UPPER ABDOMEN: Normal. OTHER FINDINGS: None. IMPRESSION: Diminishing right pneumothorax status post removal of right chest tube with trace residual. Diminishing atelectasis left base, nearly completely resolved. Findings reviewed and discussed with Dr. Neal, 12/06/2016 12:04 p.m.
--- NOTE | 2016-12-06 12:37 | CP.PCM.CON ---
History of Present Illness - History of Present Illness History of Present Illness: Reason for consultation: Persistent pneumothorax and subcutaneous emphysema, right. Requested by Dr. Henley. Pt s.e. Imaging studies and progress notes reviewed. 76 yo female s/p ICD insertion yesterday following which a serial chest xray showed expanding pneumothrax, A 28f chest tube inserted at bedside, and this am noted to have subcutaneous emphysema and she c/o chest pain. Px-subcutaneous emphysema right upper abdomen, a massive swelling and hematoma right upper ant chest wall, and previous s/p breast implantation bilaterally. ct of chest thia am: tip of chest tube just bellow the right hillum, and just above the right hemidiaphragm+ apical pneumothorax. Reinsertion of a chest tube will require a major exposure behind the implant, and right ant chest wall approach would be difficult also in view of hematoma and edema from recent surgery. I am incline to remove the chest tube, and f/u pneumo radiographically, and if pneumo increases, then will insert a tube in the or under general anesthesia. d/w dr. Mcgrath who also agreed with the rx plan. Explanined to the pt ahd her and they agreed to undergo removal approach. Chest tube removed and chest xray now shows tiny pneumothorax. will get cxr at 3pm, 8pm and in the morning tomorrow. 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) - CARDIAC Hx Cardiac Disorders: Yes (CAD) Hx Hypercholesterolemia: Yes Hx Hypertension: Yes - PULMONARY Hx Respiratory Disorders: Yes Hx Asthma: Yes - NEUROLOGICAL Hx Neurological Disorder: No - HEENT Hx Cataracts: Yes (b/l cataract sx) Hx Epistaxis: Yes (1-2 x the last 4 days) - RENAL Hx Chronic Kidney Disease: No - ENDOCRINE/METABOLIC Hx Endocrine Disorders: No - HEMATOLOGICAL/ONCOLOGICAL Hx Cancer: Yes (breast ca 30 yrs ago, bilateral breast implants inserted soon after) Hx Chemotherapy: No (no chemo no radiation) - INTEGUMENTARY Hx Dermatological Problems: No - MUSCULOSKELETAL/RHEUMATOLOGICAL Hx Arthritis: Yes - GASTROINTESTINAL Hx Gastroesophageal Reflux: Yes - GENITOURINARY/GYNECOLOGICAL Hx Genitourinary Disorders: No - PSYCHIATRIC Hx Depression: No Hx Substance Use: No - SURGICAL HISTORY Hx Appendectomy: Yes (pt was 11 yrs old) Hx Cholecystectomy: Yes Hx Coronary Stent: Yes - ANESTHESIA Hx Anesthesia: Yes Hx Anesthesia Reactions: No Hx Malignant Hyperthermia: No Meds Allergies/Adverse Reactions: Allergies Allergy/AdvReac Type Severity Reaction Status Date / Time Penicillins Allergy RASH Verified 12/04/16 16:20 pcn AdvReac RASH Uncoded 10/24/16 20:32 - Medications Medications: Current Medications Albuterol (Ventolin Hfa 90 Mcg/Actuation (8 G)) 2 puff IH Q4H PRN PRN Reason: Wheezing Albuterol Sulfate (Albuterol 0.083% Inhal [place] (2.5 Mg/3 Ml) Ud) 2.5 mg IH RQ6 [facility] Last Admin: 12/06/16 08:08 Dose: 2.5 mg Denosumab (Prolia) mg SC Q6M [facility] Enalaprilat (Vasotec) 2.5 mg IV Q8 PRN PRN Reason: HYPERTENSION Last Admin: 12/04/16 19:12 Dose: 2.5 mg Famotidine (Pepcid) 20 mg IVP Q12 [facility] Last Admin: 12/06/16 09:35 Dose: 20 mg Heparin Sodium (Porcine) (Heparin) 5,000 units SC Q8 [facility] Last Admin: 12/06/16 06:17 Dose: 5,000 units Sodium Chloride (Sodium Chloride 0.9%) 1,000 mls @ 60 mls/hr IV .[id number] [facility] Last Admin: 12/06/16 12:18 Dose: 60 mls/hr Lidocaine HCl (Lidocaine Hydrochloride 1% 10 Ml) 0 ml INFIL ONCE ONE Stop: 12/06/16 11:56 Loperamide HCl (Imodium) 1 mg PO TID PRN PRN Reason: DIARRHEA Loratadine (Claritin) 10 mg PO DAILY [facility] Montelukast Sodium (Singulair) 10 mg PO HS [facility] Last Admin: 12/05/16 22:04 Dose: 10 mg Morphine Sulfate (Morphine) 1 mg IV Q4 PRN PRN Reason: Pain, moderate (4-7) Last Admin: 12/06/16 12:02 Dose: 1 mg Ondansetron HCl (Zofran Inj) 4 mg IVP DAILY@ONCE PRN PRN Reason: Nausea/Vomiting Last Admin: 12/05/16 19:03 Dose: 4 mg Pantoprazole Sodium (Protonix Ec Tab) 40 mg PO DAILY [facility] Last Admin: 12/05/16 09:14 Dose: 40 mg Rosuvastatin Calcium (Crestor) 10 mg PO HS [facility] Last Admin: 12/05/16 22:03 Dose: 10 mg Fluticasone/Salmeterol (Advair Diskus 250/50) 1 puff INH RQ12 [facility] Last Admin: 12/05/16 22:02 Dose: 1 puff Tiotropium [place] (Spiriva) 18 mcg IH RQD [facility] Results - Vital Signs Recent Vital Signs: Last Vital Signs Temp 97.9 F 12/06/16 08:00 Pulse 89 12/06/16 11:00 Resp 20 12/06/16 11:00 BP 162/79 H 12/06/16 10:23 Pulse Ox 94 L 12/06/16 11:00 - Labs Result Diagrams: 12/06/16 08:17 12/06/16 08:17 Labs: Laboratory Results - last 24 hr 12/06/16 12/06/16 08:17 08:17 WBC 8.7 RBC 4.12 Hgb 11.6 Hct 35.3 MCV 85.7 MCH 28.3 MCHC 33.0 RDW 14.5 Plt Count 179 MPV 9.9 Neut % (Auto) 77.0 H Lymph % (Auto) 13.0 L [place] % (Auto) 9.1 Eos % (Auto) 0.7 Baso % (Auto) 0.2 Neut # 6.7 Lymph # 1.1 [place] # 0.8 Eos # 0.1 Baso # 0.0 Sodium 139 Potassium 4.4 Chloride 102 Carbon Dioxide 28 Anion Gap 13 BUN 13 Creatinine 0.7 Est GFR ( Amer) > 60 Est GFR (Non-Af Amer) > 60 Random Glucose 148 H Calcium 8.7 Phosphorus 3.4 Magnesium 1.9 Total Bilirubin 1.0 AST 43 H D ALT 50 Alkaline Phosphatase 58 Total Protein 6.2 L Albumin 3.5 Globulin 2.6 Albumin/Globulin Ratio 1.4
--- NOTE | 2016-12-06 12:40 | RAD ---
HISTORY: chest tube COMPARISON: Portable chest 12/05/2016 FINDINGS: LUNGS: No active pulmonary disease. PLEURA: No significant pleural effusion identified, no pneumothorax apparent. CARDIOVASCULAR: Stable cardiac silhouette with prominent pacemaker again identified in position. OSSEOUS STRUCTURES: No significant abnormalities. VISUALIZED UPPER ABDOMEN: Normal. OTHER FINDINGS: None. IMPRESSION: No acute infiltrate appreciated in the interval. Cardiomediastinal silhouette appears stable including pacemaker.
[2016-12-06] MEDS ORDERED: Lidocaine 2% Inj (20ml) INFIL ONE (13:30)
--- NOTE | 2016-12-06 14:47 | CP.PCM.PN ---
Subjective - Date & Time of Evaluation Date of Evaluation: 12/06/16 Time of Evaluation: 03:00 - Subjective Subjective: Attending: Will Torres MD Follow-up PPM AV block and pneumothorax PPM implant yesterday. She developed sizable pneumothorax CT placed last night. Much appreciated. CT removed today as lung reexpanded and having some subcutaneous emphysema. Remains A-sensed and V-paced. No fever or chills. No palpitaitons of any duraiton located in chest in context of sitting in bed. No associated dizziness. Objective - Vital Signs/Intake and Output Vital Signs (last 24 hours): Temp Pulse Resp BP Pulse Ox 97.9 F 95 H 16 155/87 H 96 12/06/16 08:00 12/06/16 13:00 12/06/16 13:00 12/06/16 12:23 12/06/16 13:00 Intake and Output: 12/06/16 12/06/16 06:59 18:59 Intake Total 900 240 Output Total 1000 0 Balance -100 240 - Medications Medications: Current Medications Albuterol (Ventolin Hfa 90 Mcg/Actuation (8 G)) 2 puff IH Q4H PRN PRN Reason: Wheezing Albuterol Sulfate (Albuterol 0.083% Inhal [place] (2.5 Mg/3 Ml) Ud) 2.5 mg IH RQ6 [facility] Last Admin: 12/06/16 14:14 Dose: 2.5 mg Denosumab (Prolia) mg SC Q6M [facility] Enalaprilat (Vasotec) 2.5 mg IV Q8 PRN PRN Reason: HYPERTENSION Last Admin: 12/04/16 19:12 Dose: 2.5 mg Famotidine (Pepcid) 20 mg IVP Q12 [facility] Last Admin: 12/06/16 09:35 Dose: 20 mg Heparin Sodium (Porcine) (Heparin) 5,000 units SC Q8 [facility] Last Admin: 12/06/16 06:17 Dose: 5,000 units Sodium Chloride (Sodium Chloride 0.9%) 1,000 mls @ 60 mls/hr IV .[id number] [facility] Last Admin: 12/06/16 12:18 Dose: 60 mls/hr Loperamide HCl (Imodium) 1 mg PO TID PRN PRN Reason: DIARRHEA Loratadine (Claritin) 10 mg PO DAILY [facility] Last Admin: 12/06/16 10:00 Dose: Not Given Montelukast Sodium (Singulair) 10 mg PO HS [facility] Last Admin: 12/05/16 22:04 Dose: 10 mg Morphine Sulfate (Morphine) 1 mg IV Q4 PRN PRN Reason: Pain, moderate (4-7) Last Admin: 12/06/16 12:02 Dose: 1 mg Ondansetron HCl (Zofran Inj) 4 mg IVP DAILY@ONCE PRN PRN Reason: Nausea/Vomiting Last Admin: 12/05/16 19:03 Dose: 4 mg Pantoprazole Sodium (Protonix Ec Tab) 40 mg PO DAILY [facility] Last Admin: 12/05/16 09:14 Dose: 40 mg Rosuvastatin Calcium (Crestor) 10 mg PO HS [facility] Last Admin: 12/05/16 22:03 Dose: 10 mg Fluticasone/Salmeterol (Advair Diskus 250/50) 1 puff INH RQ12 [facility] Tiotropium [place] (Spiriva) 18 mcg IH RQD [facility] - Labs Labs: 12/06/16 08:17 12/06/16 08:17 PT 11.6 SECONDS (9.7-12.2) 12/04/16 17:08 INR 1.0 12/04/16 17:08 APTT 32 SECONDS (21-34) 12/04/16 17:08 - Constitutional Appears: Well, Non-toxic - Head Exam Head Exam: ATRAUMATIC, NORMAL INSPECTION - Eye Exam Eye Exam: EOMI, Normal appearance, PERRL Pupil Exam: NORMAL ACCOMODATION, PERRL - ENT Exam ENT Exam: Mucous Membranes Moist - Respiratory Exam Respiratory Exam: Clear to Ausculation Bilateral - Cardiovascular Exam Cardiovascular Exam: REGULAR RHYTHM Additional comments: PPM site c/d/i with small hematoma - GI/Abdominal Exam GI & Abdominal Exam: Normal Bowel Sounds - Neurological Exam Neurological Exam: Alert, Awake - Psychiatric Exam Psychiatric exam: Normal Affect, Normal Mood - Skin Skin Exam: Normal Color, Warm Assessment and Plan - Assessment and Plan (Free Text) Assessment: 76 yo woman with CAD and HTN. s/p PPM for 2:1 AV block c/b pneumonthorax. CT was in place and lung now reexpanded and CT removed. HTN AV block PPM Pneumothorax Plan: - continue NRFM oxygen - follow-up CXR tomorrow - hopefuly DC tomorrow if stable
--- NOTE | 2016-12-06 15:22 | RAD ---
HISTORY: compariso COMPARISON: Portable chest 12/06/2016 12:01 p.m. FINDINGS: LUNGS: No definite acute infiltrate or pleural effusion identified. Minimal right apical pneumothorax is stable. Study somewhat underpenetrated prickly at the left side. Pacemaker again noted with prominent cardiac silhouette. No pulmonary vascular derangement. PLEURA: As discussed above. CARDIOVASCULAR: Normal. OSSEOUS STRUCTURES: No significant abnormalities. VISUALIZED UPPER ABDOMEN: Normal. OTHER FINDINGS: None. IMPRESSION: Stable minimal right apical pneumothorax. Remaining examination is also unchanged interval including prominent cardiac silhouette. No definite acute pulmonary infiltrate.
--- NOTE | 2016-12-06 15:23 | RAD ---
PROCEDURE: INTRAOPERATIVE CHEST FLUOROSCOPY T8 08/30/2016 HISTORY: HEART BLOCK WITH SLOW HEART RATE COMPARISON: TECHNIQUE: Intra under fluoroscopy was provided to the referring physician child development assistant prior cardiac pacemaker placement with 2 spot fluoroscopic images submitted for review. FINDINGS: A knee right-sided pacemakers of endplates with degenerate the right pectoralis region and to is identified extending by right subclavian route approach into the right heart region grossly. Please see operative report further detail. 200.2 seconds of fluoroscopic was utilized yielding a cumulative x-rayed dose of 34.54 mGy. IMPRESSION: As above.
--- NOTE | 2016-12-06 17:28 | CP.CCUPN ---
CCU Subjective - Physician Review Events Since Last Encounter (Free Text): 12/06/16 17:27 Patient with a history of hypertension CAD arthritis hypercholesteremia history of breast cancer in the past osteoarthritis and will is revisit reflux disease admitted to the hospital with the shortness of breath. The patient was noted to have bradycardia, with the 2-1 conduction block. Patient underwent a right-sided pacemaker, following the pacemaker patient developed a pneumothorax on the right side. Patient underwent right-sided chest tube placement by the surgical team. Complicated with the mild subcutis emphysema, and persistent pneumothorax. Patient repeated chest x-ray after removal of the chest tube are showing improvement in the pneumothorax. Patient was seen by thoracic surgery, and the chest tube removed. Patient is currently otherwise stable. Currently on high flow oxygen. Much improved than in the morning. No pain. Denies any chest pain or shortness of breath Clinically patient is stable. Eating okay. Minimal cough noted Repeat chest x-ray which was done 3 PM showing evidence of very mild minimal pneumothorax, not worsening at this time. We'll continue to monitor. If the x-ray in the morning stable patient can be moved out under transferred to floor. Continue the supportive care. I spoke to the patient's . CCU Objective - Vital Signs / Intake & Output Vital Signs (Last 4 hours): Vital Signs Pulse Resp BP Pulse Ox 12/06/16 16:23 96 H 22 161/75 H 94 L 12/06/16 16:00 96 H 24 92 L 12/06/16 15:24 99 H 16 155/71 H 94 L 12/06/16 15:00 101 H 22 94 L 12/06/16 14:23 101 H 20 137/77 87 L 12/06/16 14:00 97 H 22 93 L Intake and Output (Last 8hrs): Intake & Output 12/06/16 12/06/16 12/06/16 06:59 14:59 22:59 Intake Total 480 570 120 Output Total 1000 520 Balance -520 50 120 Weight 186 lb 4.65 oz Intake: Intake, IV Amount 480 420 120 Left Antecubital 480 420 120 Oral 0 150 Output: Chest Tube Drainage 20 Right Mid-Axillary Chest 20 Urine 1000 500 Urine, Voided 1000 500 Stool 0 Other: # Voids Urine, Voided 1 - Medications Active Medications: Active Medications Generic Name Dose Route Start Last Admin Trade Name Freq PRN Reason Stop Dose Admin Albuterol 2 puff 12/04/16 19:29 Ventolin Hfa 90 Mcg/Actuation (8 G) IH Q4H PRN Wheezing Albuterol Sulfate 2.5 mg 12/05/16 20:00 12/06/16 14:14 Albuterol 0.083% Inhal [place] (2.5 Mg/3 Ml) Ud IH 2.5 mg RQ6 [facility] Administration Enalaprilat 2.5 mg 12/04/16 18:59 12/04/16 19:12 Vasotec IV 2.5 mg Q8 PRN Administration HYPERTENSION Famotidine 20 mg 12/05/16 22:00 12/06/16 09:35 Pepcid IVP 20 mg Q12 [facility] Administration Heparin Sodium (Porcine) 5,000 units 12/05/16 14:00 12/06/16 15:32 Heparin SC 5,000 units Q8 [facility] Administration Sodium Chloride 1,000 mls @ 60 mls/hr 12/04/16 20:30 12/06/16 12:18 Sodium Chloride 0.9% IV 60 mls/hr .[id number] [facility] Administration Loperamide HCl 1 mg 12/04/16 19:45 Imodium PO TID PRN DIARR[facility] Loratadine 10 mg 12/06/16 10:00 12/06/16 10:00 Claritin PO Not Given DAILY [facility] Montelukast Sodium 10 mg 12/04/16 22:00 12/05/16 22:04 Singulair PO 10 mg HS [facility] Administration Morphine Sulfate 1 mg 12/05/16 18:57 12/06/16 16:12 Morphine IV 1 mg Q4 PRN Administration Pain, moderate (4-7) Ondansetron HCl 4 mg 12/05/16 19:00 12/05/16 19:03 Zofran Inj IVP 4 mg DAILY@ONCE PRN Administration Nausea/Vomiting Pantoprazole Sodium 40 mg 12/05/16 10:00 12/06/16 10:00 Protonix Ec Tab PO Not Given DAILY [facility] Rosuvastatin Calcium 10 mg 12/04/16 22:00 12/05/16 22:03 Crestor PO 10 mg HS [facility] Administration Fluticasone/Salmeterol 1 puff 12/06/16 20:00 Advair Diskus 250/50 INH RQ12 [facility] Tiotropium [place] 18 mcg 08/26/17 14:30 Spiriva IH RQD [facility] - Patient Studies Lab Studies: Lab Studies 12/06/16 12/06/16 Range/Units 08:17 08:17 WBC 8.7 (4.8-10.8) K/uL RBC 4.12 (3.80-5.20) Mil/uL Hgb 11.6 (11.0-16.0) g/dL Hct 35.3 (34.0-47.0) % MCV 85.7 (81.0-99.0) fL MCH 28.3 (27.0-31.0) pg MCHC 33.0 (33.0-37.0) g/dL RDW 14.5 (11.5-14.5) % Plt Count 179 (130-400) K/uL MPV 9.9 (7.2-11.7) fL Neut % (Auto) 77.0 H (50.0-75.0) % Lymph % (Auto) 13.0 L (20.0-40.0) % [place] % (Auto) 9.1 (0.0-10.0) % Eos % (Auto) 0.7 (0.0-4.0) % Baso % (Auto) 0.2 (0.0-2.0) % Neut # 6.7 (1.8-7.0) K/uL Lymph # 1.1 (1.0-4.3) K/uL [place] # 0.8 (0.0-0.8) K/uL Eos # 0.1 (0.0-0.7) K/uL Baso # 0.0 (0.0-0.2) K/uL Sodium 139 (132-148) mmol/L Potassium 4.4 (3.6-5.2) mmol/L Chloride 102 (98-107) mmol/L Carbon Dioxide 28 (22-30) mmol/L Anion Gap 13 (10-20) BUN 13 (7-17) mg/dL Creatinine 0.7 (0.7-1.2) MG/DL Est GFR ( Amer) > 60 Est GFR (Non-Af Amer) > 60 Random Glucose 148 H (65-105) mg/dL Calcium 8.7 (8.6-10.4) mg/dl Phosphorus 3.4 (2.5-4.5) mg/dL Magnesium 1.9 (1.6-2.3) mg/dL Total Bilirubin 1.0 (0.2-1.3) mg/dL AST 43 H D (14-36) U/L ALT 50 (9-52) U/L Alkaline Phosphatase 58 (38-126) U/L Total Protein 6.2 L (6.3-8.3) g/dL Albumin 3.5 (3.5-5.0) g/dL Globulin 2.6 (2.2-3.9) gm/dL Albumin/Globulin Ratio 1.4 (1.0-2.1) Laboratory Results - last 24 hr 12/06/16 12/06/16 08:17 08:17 WBC 8.7 RBC 4.12 Hgb 11.6 Hct 35.3 MCV 85.7 MCH 28.3 MCHC 33.0 RDW 14.5 Plt Count 179 MPV 9.9 Neut % (Auto) 77.0 H Lymph % (Auto) 13.0 L [place] % (Auto) 9.1 Eos % (Auto) 0.7 Baso % (Auto) 0.2 Neut # 6.7 Lymph # 1.1 [place] # 0.8 Eos # 0.1 Baso # 0.0 Sodium 139 Potassium 4.4 Chloride 102 Carbon Dioxide 28 Anion Gap 13 BUN 13 Creatinine 0.7 Est GFR ( Amer) > 60 Est GFR (Non-Af Amer) > 60 Random Glucose 148 H Calcium 8.7 Phosphorus 3.4 Magnesium 1.9 Total Bilirubin 1.0 AST 43 H D ALT 50 Alkaline Phosphatase 58 Total Protein 6.2 L Albumin 3.5 Globulin 2.6 Albumin/Globulin Ratio 1.4 Critical Care Progress Note - Nutrition Nutrition: Nutrition Category Date Time Status Regular Diet [DIET] Diets 12/06/16 Lunch Active
[2016-12-06] MEDS ORDERED: Enalaprilat 2.5 MG/2 ML IV PRN (19:52)
--- NOTE | 2016-12-06 19:58 | CP.PCM.PN ---
Subjective - Date & Time of Evaluation Date of Evaluation: 12/06/16 Time of Evaluation: 19:54 - Subjective Subjective: Pt seen and examined at bedside. In much better spirits today than yesterday when she looked a little worried. Tolerating O2 by NC and chest tube removed this AM. Was able to tolerate getting OOB to chair this afternoon as well. Appreciate the help of all services very much. Thank you. Objective - Vital Signs/Intake and Output Vital Signs (last 24 hours): Temp Pulse Resp BP Pulse Ox 97.9 F 98 H 23 142/60 92 L 12/06/16 08:00 12/06/16 18:30 12/06/16 18:30 12/06/16 18:30 12/06/16 18:30 Intake and Output: 12/06/16 12/07/16 18:59 06:59 Intake Total 1010 Output Total 820 Balance 190 - Medications Medications: Current Medications Albuterol (Ventolin Hfa 90 Mcg/Actuation (8 G)) 2 puff IH Q4H PRN PRN Reason: Wheezing Albuterol Sulfate (Albuterol 0.083% Inhal [place] (2.5 Mg/3 Ml) Ud) 2.5 mg IH RQ6 [facility] Last Admin: 12/06/16 14:14 Dose: 2.5 mg Enalaprilat (Vasotec) 2.5 mg IV Q8 PRN PRN Reason: HYPERTENSION Heparin Sodium (Porcine) (Heparin) 5,000 units SC Q8 [facility] Last Admin: 12/06/16 15:32 Dose: 5,000 units Sodium Chloride (Sodium Chloride 0.9%) 1,000 mls @ 60 mls/hr IV .[id number] [facility] Last Admin: 12/06/16 12:18 Dose: 60 mls/hr Loperamide HCl (Imodium) 1 mg PO TID PRN PRN Reason: DIARRHEA Loratadine (Claritin) 10 mg PO DAILY [facility] Last Admin: 12/06/16 10:00 Dose: Not Given Losartan Potassium (Cozaar) 50 mg PO DAILY [facility] Montelukast Sodium (Singulair) 10 mg PO HS [facility] Last Admin: 12/05/16 22:04 Dose: 10 mg Morphine Sulfate (Morphine) 2 mg IV Q4 PRN PRN Reason: pain, mod to sev (4-10) Ondansetron HCl (Zofran Inj) 4 mg IVP DAILY@ONCE PRN PRN Reason: Nausea/Vomiting Last Admin: 12/05/16 19:03 Dose: 4 mg Pantoprazole Sodium (Protonix Ec Tab) 40 mg PO DAILY [facility] Last Admin: 12/06/16 10:00 Dose: Not Given Rosuvastatin Calcium (Crestor) 10 mg PO HS [facility] Last Admin: 12/05/16 22:03 Dose: 10 mg Fluticasone/Salmeterol (Advair Diskus 250/50) 1 puff INH RQ12 [facility] Tiotropium [place] (Spiriva) 18 mcg IH RQD [facility] Zolpidem Tartrate (Ambien) 5 mg PO HS PRN PRN Reason: Insomnia - Labs Labs: 12/06/16 08:17 12/06/16 08:17 PT 11.6 SECONDS (9.7-12.2) 12/04/16 17:08 INR 1.0 12/04/16 17:08 APTT 32 SECONDS (21-34) 12/04/16 17:08 - Constitutional Appears: No Acute Distress - Head Exam Head Exam: ATRAUMATIC, NORMAL INSPECTION, NORMOCEPHALIC - Eye Exam Eye Exam: Normal appearance Pupil Exam: NORMAL ACCOMODATION - ENT Exam ENT Exam: Mucous Membranes Moist, Normal Exam - Neck Exam Neck Exam: Normal Inspection - Respiratory Exam Respiratory Exam: Clear to Ausculation Bilateral, NORMAL BREATHING PATTERN - Cardiovascular Exam Cardiovascular Exam: REGULAR RHYTHM - GI/Abdominal Exam GI & Abdominal Exam: Soft, Normal Bowel Sounds - Extremities Exam Extremities Exam: Normal Capillary Refill, Normal Inspection - Back Exam Back Exam: NORMAL INSPECTION - Neurological Exam Neurological Exam: CN II-XII Intact, Oriented x3 Neuro motor strength exam: Left Upper Extremity: 4, Right Upper Extremity: 4, Left Lower Extremity: 4, Right Lower Extremity: 4 - Psychiatric Exam Psychiatric exam: Normal Affect, Normal Mood - Skin Skin Exam: Dry, Intact, Normal Color, Warm Assessment and Plan (1) Pneumothorax Assessment & Plan: improving Status: Acute (2) Symptomatic bradycardia Status: Resolved (3) Chest tightness or pressure Status: Resolved (4) Hypertension Assessment & Plan: started pt on ARB equivalent to pt's home med Status: Chronic
[2016-12-06] MEDS: Fluticasone-Salmeterol 250-50mcg Diskus INH SCH (20:28)
--- NOTE | 2016-12-06 20:37 | CP.PCM.PN ---
Subjective - Date & Time of Evaluation Date of Evaluation: 12/06/16 Time of Evaluation: 13:00 - Subjective Subjective: Patient seen and evaluated S/P chest tube removal Denies dyspnea Some pain at the chest tube site Cooperative Objective - Vital Signs/Intake and Output Vital Signs (last 24 hours): Temp Pulse Resp BP Pulse Ox 97.9 F 98 H 23 142/60 92 L 12/06/16 08:00 12/06/16 18:30 12/06/16 18:30 12/06/16 18:30 12/06/16 18:30 Intake and Output: 12/06/16 12/07/16 18:59 06:59 Intake Total 1010 Output Total 820 Balance 190 - Medications Medications: Current Medications Albuterol (Ventolin Hfa 90 Mcg/Actuation (8 G)) 2 puff IH Q4H PRN PRN Reason: Wheezing Albuterol Sulfate (Albuterol 0.083% Inhal [place] (2.5 Mg/3 Ml) Ud) 2.5 mg IH RQ6 [facility] Last Admin: 12/06/16 20:10 Dose: 2.5 mg Heparin Sodium (Porcine) (Heparin) 5,000 units SC Q8 [facility] Last Admin: 12/06/16 15:32 Dose: 5,000 units Enalaprilat 2.5 mg/ Sodium (Chloride) 52 mls @ 156 mls/hr IV Q8H PRN Loperamide HCl (Imodium) 1 mg PO TID PRN PRN Reason: DIARRHEA Loratadine (Claritin) 10 mg PO DAILY [facility] Last Admin: 12/06/16 10:00 Dose: Not Given Losartan Potassium (Cozaar) 50 mg PO DAILY [facility] Montelukast Sodium (Singulair) 10 mg PO HS [facility] Last Admin: 12/05/16 22:04 Dose: 10 mg Morphine Sulfate (Morphine) 2 mg IV Q4 PRN PRN Reason: pain, mod to sev (4-10) Ondansetron HCl (Zofran Inj) 4 mg IVP DAILY@ONCE PRN PRN Reason: Nausea/Vomiting Last Admin: 12/05/16 19:03 Dose: 4 mg Pantoprazole Sodium (Protonix Ec Tab) 40 mg PO DAILY [facility] Last Admin: 12/06/16 10:00 Dose: Not Given Rosuvastatin Calcium (Crestor) 10 mg PO [facility] Last Admin: 12/05/16 22:03 Dose: 10 mg Fluticasone/Salmeterol (Advair Diskus 250/50) 1 puff INH RQ12 [facility] Last Admin: 12/06/16 20:28 Dose: 1 puff Tiotropium [place] (Spiriva) 18 mcg IH RQD [facility] Zolpidem Tartrate (Ambien) 5 mg PO HS PRN PRN Reason: Insomnia - Labs Labs: 12/06/16 08:17 12/06/16 08:17 PT 11.6 SECONDS (9.7-12.2) 12/04/16 17:08 INR 1.0 12/04/16 17:08 APTT 32 SECONDS (21-34) 12/04/16 17:08 - Head Exam Head Exam: ATRAUMATIC, NORMAL INSPECTION - Eye Exam Eye Exam: EOMI, PERRL Pupil Exam: NORMAL ACCOMODATION - ENT Exam ENT Exam: Mucous Membranes Moist, Normal Exam - Neck Exam Neck Exam: Full ROM, Normal Inspection - Respiratory Exam Respiratory Exam: NORMAL BREATHING PATTERN Additional comments: Right sided PPM PneumoTx/Subcutaneous emphysema resolving - Cardiovascular Exam Cardiovascular Exam: REGULAR RHYTHM, +S1, +S2 - GI/Abdominal Exam GI & Abdominal Exam: Soft, Normal Bowel Sounds - Neurological Exam Neurological Exam: Alert, Awake, Oriented x3 - Psychiatric Exam Psychiatric exam: Normal Mood - Skin Skin Exam: Warm Assessment and Plan - Assessment and Plan (Free Text) Assessment: 1. S/P PPM 2. S/P PneumoTx/Subcutaneuos emphysema resolving 3. s/p Heart block 4. CAD hx of stent 5. HTN controlled 6. Hyperlipidemia Stable
[2016-12-07] MEDS: Albuterol 0.083% Inhal Sol (2.5 mg/3 mL) UD IH SCH ×4 (01:26→20:19)
--- NOTE | 2016-12-07 01:55 | CP.PCM.DIS ---
Provider - Provider Date of Admission: 12/04/16 17:38 Attending physician: Lloyd Silveira MD Discharge Summary Initially Prepared on 12/07/2016 Discharge Summary Finalized and Signed on 12/08/2016 Primary care physician: Dr. Lloyd Silveira Consults: Dr. Bridger Sousa Time Spent in preparation of Discharge (in minutes): 60 Diagnosis - Discharge Diagnosis (1) Symptomatic bradycardia Status: Resolved Priority: High (2) Pneumothorax Status: Acute Priority: Medium (3) Chest tightness or pressure Status: Resolved (4) Hypertension Status: Chronic (5) Acute bronchitis Status: Acute Priority: Medium Comment: incentive spirometry prior to discharge. pls teach pt how to use. Hospital Course - Lab Results Lab Results: Micro Results 12/05/16 20:35 Naris MRSA Culture (Admit) - Final MRSA NOT DETECTED Most Recent Lab Values WBC 8.7 K/uL (4.8-10.8) 12/06/16 08:17 RBC 4.12 Mil/uL (3.80-5.20) 12/06/16 08:17 Hgb 11.6 g/dL (11.0-16.0) 12/06/16 08:17 Hct 35.3 % (34.0-47.0) 12/06/16 08:17 MCV 85.7 fL (81.0-99.0) 12/06/16 08:17 MCH 28.3 pg (27.0-31.0) 12/06/16 08:17 MCHC 33.0 g/dL (33.0-37.0) 12/06/16 08:17 RDW 14.5 % (11.5-14.5) 12/06/16 08:17 Plt Count 179 K/uL (130-400) 12/06/16 08:17 MPV 9.9 fL (7.2-11.7) 12/06/16 08:17 Neut % (Auto) 77.0 % (50.0-75.0) H 12/06/16 08:17 Lymph % (Auto) 13.0 % (20.0-40.0) L 12/06/16 08:17 [place] % (Auto) 9.1 % (0.0-10.0) 12/06/16 08:17 Eos % (Auto) 0.7 % (0.0-4.0) 12/06/16 08:17 Baso % (Auto) 0.2 % (0.0-2.0) 12/06/16 08:17 Neut # 6.7 K/uL (1.8-7.0) 12/06/16 08:17 Lymph # 1.1 K/uL (1.0-4.3) 12/06/16 08:17 [place] # 0.8 K/uL (0.0-0.8) 12/06/16 08:17 Eos # 0.1 K/uL (0.0-0.7) 12/06/16 08:17 Baso # 0.0 K/uL (0.0-0.2) 12/06/16 08:17 PT 11.6 SECONDS (9.7-12.2) 12/04/16 17:08 INR 1.0 12/04/16 17:08 APTT 32 SECONDS (21-34) 12/04/16 17:08 Sodium 139 mmol/L (132-148) 12/06/16 08:17 Potassium 4.4 mmol/L (3.6-5.2) 12/06/16 08:17 Chloride 102 mmol/L (98-107) 12/06/16 08:17 Carbon Dioxide 28 mmol/L (22-30) 12/06/16 08:17 Anion Gap 13 (10-20) 12/06/16 08:17 BUN 13 mg/dL (7-17) 12/06/16 08:17 Creatinine 0.7 MG/DL (0.7-1.2) 12/06/16 08:17 Est GFR ( Amer) > 60 12/06/16 08:17 Est GFR (Non-Af Amer) > 60 12/06/16 08:17 Random Glucose 148 mg/dL (65-105) H 12/06/16 08:17 Calcium 8.7 mg/dl (8.6-10.4) 12/06/16 08:17 Phosphorus 3.4 mg/dL (2.5-4.5) 12/06/16 08:17 Magnesium 1.9 mg/dL (1.6-2.3) 12/06/16 08:17 Total Bilirubin 1.0 mg/dL (0.2-1.3) 12/06/16 08:17 AST 43 U/L (14-36) H D 12/06/16 08:17 ALT 50 U/L (9-52) 12/06/16 08:17 Alkaline Phosphatase 58 U/L (38-126) 12/06/16 08:17 Total Creatine Kinase 124 U/L (30-135) 12/04/16 17:08 CK-MB (Mass) 1.90 ng/mL (0.0-3.38) 12/04/16 17:08 Troponin I < 0.0120 ng/mL (0.00-0.120) 12/04/16 17:08 NT-Pro-B Natriuret Pep 215 pg/mL (0-900) 12/04/16 17:08 Total Protein 6.2 g/dL (6.3-8.3) L 12/06/16 08:17 Albumin 3.5 g/dL (3.5-5.0) 12/06/16 08:17 Globulin 2.6 gm/dL (2.2-3.9) 12/06/16 08:17 Albumin/Globulin Ratio 1.4 (1.0-2.1) 12/06/16 08:17 Urine Color Yellow (YELLOW) 12/05/16 00:44 Urine Clarity Clear (Clear) 12/05/16 00:44 Urine pH 5.0 (5.0-8.0) 12/05/16 00:44 Ur Specific [place] 1.010 (1.003-1.030) 12/05/16 00:44 Urine Protein Negative mg/dL (NEGATIVE) 12/05/16 00:44 Urine Glucose (UA) Normal mg/dL (Normal) 12/05/16 00:44 Urine Ketones Negative mg/dL (NEGATIVE) 12/05/16 00:44 Urine Blood Negative (NEGATIVE) 12/05/16 00:44 Urine Nitrate Negative (NEGATIVE) 12/05/16 00:44 Urine Bilirubin Negative (NEGATIVE) 12/05/16 00:44 Urine Urobilinogen Normal mg/dL (0.2-1.0) 12/05/16 00:44 Ur Leukocyte Esterase Neg [place]/uL (Negative) 12/05/16 00:44 Urine WBC (Auto) 1 /hpf (0-5) 12/05/16 00:44 Urine RBC (Auto) 1 /hpf (0-3) 12/05/16 00:44 Ur Squamous Epith Cells 2 /hpf (0-5) 12/05/16 00:44 Blood Type O POSITIVE 12/04/16 17:08 Antibody Screen Negative 12/04/16 17:08 - Hospital Course Hospital Course: Pt had been having difficulty breathing after walking a few steps (~10 feet). This had been going on for approx 2 1/2 to 3 months. Pt had gone to [facility] where her oncology admin admits and review of records by this author at the time showed an abnormal EKG (bradycardia) and read as abnormal EKG. Pt was placed on observation and serial troponins obtained were normal. Pt got a cardiac cath which showed minimal coronary artery disease. At the office visit, pt found to have a heart rate of 45, which explained her shortness of breath. After having tapered off all her rate controlling BP medications, pt was admitted for PPM placement. > PPM insertion was relatively uneventful until pt was in recovery room and pt' s HR was noted to be climbing. O2 given, and CXR showed an expanding pneumothorax. Pulmonary was called, and CTS was called in to insert a chest tube. The following morning, the pneumothorax was minimal, and chest tube was removed by the attending CTS. The alhaji f the hospital stay was uneventful, and pt discharged home. Discharge Exam - Head Exam Head Exam: ATRAUMATIC, NORMAL INSPECTION, NORMOCEPHALIC - Eye Exam Eye Exam: Normal appearance Pupil Exam: NORMAL ACCOMODATION - ENT Exam ENT Exam: Normal Exam - Neck Exam Neck exam: Normal Inspection Additional comments: no JVD - Respiratory Exam Respiratory Exam: Clear to PA & Lateral, NORMAL BREATHING PATTERN Additional comments: + coughing with prolonged talking - Cardiovascular Exam Cardiovascular Exam: REGULAR RHYTHM - GI/Abdominal Exam GI & Abdominal Exam: Normal Bowel Sounds - Rectal Exam Rectal Exam: Deferred - Extremities Exam Extremities exam: normal inspection, pedal pulses present - Back Exam Back exam: NORMAL INSPECTION - Neurological Exam Neurological exam: Alert, CN II-XII Intact, Oriented x3, Reflexes Normal - Psychiatric Exam Psychiatric exam: Normal Affect, Normal Mood - Skin Skin Exam: Dry, Intact Additional comments: + Discharge Plan - Follow Up Plan Condition: GUARDED Disposition: HOME/ ROUTINE Patient education suggested?: Yes Additional Instructions: Follow up with Dr. Nadeem Silveira on , Dec 16, 2016 at 1 pm. > Call [phone] for any issues. Clinical Quality Measures - CQM - Stroke Antithrombotic Prescribed: Medical Contraindication Present Contranindication/Reason for not providing: Other (hx of recurrent epistaxis this past week) If Other selected, reason for not providing: epistaxis, recurrent Anticoagulation Prescribed for Atrial Flutter, Atrial Fibrillation and History of:: Not Applicable Contranindication/Reason for not providing: Other (no indication) Other Contraindication/Reason for not providing: no arrythmia Statin prescribed: Yes
[2016-12-07 06:41] LABS: HEMATOCRIT 34.4 % (34.0-47.0); MEAN CELL VOLUME 86.1 fL (81.0-99.0); MEAN CORPUSCULAR HEMOGLOBIN 28.1 pg (27.0-31.0); MEAN CORPUSCULAR HGB CONC 32.6 g/dL (33.0-37.0); RED CELL DISTRIBUTION WIDTH 14.4 % (11.5-14.5); WHITE BLOOD COUNT 7.4 K/uL (4.8-10.8)
[2016-12-07] MEDS: Tiotropium 18 mcg Cap For Inhalation IH SCH (06:55)
[2016-12-07] MEDS: Fluticasone-Salmeterol 250-50mcg Diskus INH SCH ×2 (06:55→20:19)
[2016-12-07 06:56] LABS: CHLORIDE 100 mmol/L (98-107)
[2016-12-07 06:57] LABS: SODIUM 141 mmol/L (132-148)
[2016-12-07 06:59] LABS: ALB/GLOB RATIO 1.2 (1.0-2.1); AST/SGOT 39 U/L (14-36); BLOOD UREA NITROGEN 12 mg/dL (7-17); GFR AFRICAN-AMERICAN > 60; TOTAL PROTEIN 6.3 g/dL (6.3-8.3)
[2016-12-07 07:00] LABS: ALKALINE PHOSPHATASE 63 U/L (38-126); ALT/SGPT 45 U/L (9-52); CALCIUM 8.7 mg/dl (8.6-10.4); GLUCOSE,RANDOM 131 mg/dL (65-105); MAGNESIUM 2.2 mg/dL (1.6-2.3); PHOSPHOROUS 2.6 mg/dL (2.5-4.5)
[2016-12-07 07:23] LABS: CARBON DIOXIDE 28 mmol/L (22-30)
--- NOTE | 2016-12-07 07:54 | RAD ---
HISTORY: comparison COMPARISON: Portable chest 11/30/2016 FINDINGS: LUNGS: Linear atelectasis identified in the medial right base with no infiltrate identified bilaterally. Pacemaker again identified. PLEURA: Minimal right pneumothorax unchanged. No pleural effusion bilaterally. CARDIOVASCULAR: Normal. OSSEOUS STRUCTURES: No significant abnormalities. VISUALIZED UPPER ABDOMEN: Normal. OTHER FINDINGS: None. IMPRESSION: Minimal residual right pneumothorax, unchanged. No acute infiltrate. Pacemaker again noted.
--- NOTE | 2016-12-07 08:18 | RAD ---
HISTORY: comparison COMPARISON: Portable chest 12/06/2016 FINDINGS: LUNGS: Minimal right pneumothorax remains at the right apex but is even smaller. No left pneumothorax. No infiltrate or pleural effusion bilaterally. PLEURA: As above CARDIOVASCULAR: Cardiac pacer again noted in position with normal size cardiac silhouette and pulmonary vascular pattern appreciated. OSSEOUS STRUCTURES: No significant abnormalities. VISUALIZED UPPER ABDOMEN: Normal. OTHER FINDINGS: None. IMPRESSION: Trace right pneumothorax further reduced. No additional significant findings.
[2016-12-07] MEDS: Pantoprazole 40 mg EC Tab PO SCH (09:35)
--- NOTE | 2016-12-07 10:14 | CP.PCM.PN ---
Subjective - Date & Time of Evaluation Date of Evaluation: 12/07/16 Time of Evaluation: 10:12 - Subjective Subjective: sURGERY NOTE FOR DR. ARIANA Horner: Patient was seen and examined at bedside. Sitting up in chair comfortably in NAD. Denies any issues overnight. This morning, patient admits that her breathing feels much improved since chest tube d/c yesterday. Patient feels better overall. Currently denies signs of chest pain, SOB, abdominal pain, n/v/d , VIZCAINO, fever or chills. No other complaints are noted at this time. Objective - Vital Signs/Intake and Output Vital Signs (last 24 hours): Temp Pulse Resp BP Pulse Ox 97.9 F 97 H 22 144/71 93 L 12/06/16 08:00 12/07/16 08:00 12/07/16 07:23 12/07/16 07:23 12/07/16 07:23 Intake and Output: 12/07/16 12/07/16 06:59 18:59 Intake Total 540 0 Output Total 650 300 Balance -110 -300 - Medications Medications: Current Medications Albuterol (Ventolin Hfa 90 Mcg/Actuation (8 G)) 2 puff IH Q4H PRN PRN Reason: Wheezing Albuterol Sulfate (Albuterol 0.083% Inhal [place] (2.5 Mg/3 Ml) Ud) 2.5 mg IH RQ6 [facility] Last Admin: 12/07/16 01:26 Dose: 2.5 mg Heparin Sodium (Porcine) (Heparin) 5,000 units SC Q8 [facility] Last Admin: 12/07/16 06:31 Dose: 5,000 units Enalaprilat 2.5 mg/ Sodium (Chloride) 52 mls @ 156 mls/hr IV Q8H PRN Loperamide HCl (Imodium) 1 mg PO TID PRN PRN Reason: DIARRHEA Loratadine (Claritin) 10 mg PO DAILY [facility] Last Admin: 12/07/16 09:35 Dose: 10 mg Losartan Potassium (Cozaar) 50 mg PO DAILY [facility] Last Admin: 12/07/16 09:35 Dose: 50 mg Montelukast Sodium (Singulair) 10 mg PO HS [facility] Last Admin: 12/06/16 22:51 Dose: 10 mg Morphine Sulfate (Morphine) 2 mg IV Q4 PRN PRN Reason: pain, mod to sev (4-10) Last Admin: 12/06/16 22:51 Dose: 2 mg Ondansetron HCl (Zofran Inj) 4 mg IVP DAILY@ONCE PRN PRN Reason: Nausea/Vomiting Last Admin: 12/05/16 19:03 Dose: 4 mg Pantoprazole Sodium (Protonix Ec Tab) 40 mg PO DAILY [facility] Last Admin: 12/07/16 09:35 Dose: 40 mg Rosuvastatin Calcium (Crestor) 10 mg PO HS [facility] Last Admin: 12/06/16 22:50 Dose: 10 mg Fluticasone/Salmeterol (Advair Diskus 250/50) 1 puff INH RQ12 [facility] Last Admin: 12/07/16 06:55 Dose: 1 puff Tiotropium [place] (Spiriva) 18 mcg IH RQD [facility] Last Admin: 12/07/16 06:55 Dose: 18 mcg Zolpidem Tartrate (Ambien) 5 mg PO HS PRN PRN Reason: Insomnia Last Admin: 12/06/16 22:54 Dose: 5 mg - Labs Labs: 12/07/16 06:24 12/07/16 06:19 PT 11.6 SECONDS (9.7-12.2) 12/04/16 17:08 INR 1.0 12/04/16 17:08 APTT 32 SECONDS (21-34) 12/04/16 17:08 - Constitutional Appears: Non-toxic, No Acute Distress - Respiratory Exam Respiratory Exam: Clear to Ausculation Bilateral, NORMAL BREATHING PATTERN - Cardiovascular Exam Cardiovascular Exam: REGULAR RHYTHM, +S1, +S2 Additional comments: Chest tube incision site CDI - Neurological Exam Neurological Exam: Alert, Awake Assessment and Plan - Assessment and Plan (Free Text) Assessment: 76F who is s/p chest tube placement and s/p Pacemaker placement POD 2 - Chest tube d/c yesterday - CXR - trace Pneumothorax further reduced - Patient stable from surgical stand point Further recs discuss with Dr. Ariana Kate, PGY2
--- NOTE | 2016-12-07 17:46 | CP.PCM.PN ---
Subjective - Date & Time of Evaluation Date of Evaluation: 12/07/16 Time of Evaluation: 17:41 - Subjective Subjective: pt comfortable in bed and slept well. Had mentioned to pt that she may be discharged today, and per Cardio request, will keep pt 1 more day to ensure pt remains stable and PPM functioning as intended also. No complaints, and breathing easy, no fatigue, no shortness of breath. > Pt for transfer to telemetry service, and agree with rn radiation order. Objective - Vital Signs/Intake and Output Vital Signs (last 24 hours): Temp Pulse Resp BP Pulse Ox 97.9 F 92 H 18 152/63 H 95 12/06/16 08:00 12/07/16 17:00 12/07/16 17:00 12/07/16 16:31 12/07/16 17:00 Intake and Output: 12/07/16 12/07/16 06:59 18:59 Intake Total 540 650 Output Total 650 600 Balance -110 50 - Medications Medications: Current Medications Albuterol (Ventolin Hfa 90 Mcg/Actuation (8 G)) 2 puff IH Q4H PRN PRN Reason: Wheezing Albuterol Sulfate (Albuterol 0.083% Inhal [place] (2.5 Mg/3 Ml) Ud) 2.5 mg IH RQ6 [facility] Last Admin: 12/07/16 14:34 Dose: 2.5 mg Heparin Sodium (Porcine) (Heparin) 5,000 units SC Q8 [facility] Last Admin: 12/07/16 13:50 Dose: 5,000 units Enalaprilat 2.5 mg/ Sodium (Chloride) 52 mls @ 156 mls/hr IV Q8H PRN Loperamide HCl (Imodium) 1 mg PO TID PRN PRN Reason: DIARRHEA Loratadine (Claritin) 10 mg PO DAILY [facility] Last Admin: 12/07/16 09:35 Dose: 10 mg Losartan Potassium (Cozaar) 50 mg PO DAILY [facility] Last Admin: 12/07/16 09:35 Dose: 50 mg Montelukast Sodium (Singulair) 10 mg PO HS [facility] Last Admin: 12/06/16 22:51 Dose: 10 mg Morphine Sulfate (Morphine) 2 mg IV Q4 PRN PRN Reason: pain, mod to sev (4-10) Last Admin: 12/06/16 22:51 Dose: 2 mg Ondansetron HCl (Zofran Inj) 4 mg IVP DAILY@ONCE PRN PRN Reason: Nausea/Vomiting Last Admin: 12/05/16 19:03 Dose: 4 mg Pantoprazole Sodium (Protonix Ec Tab) 40 mg PO DAILY [facility] Last Admin: 12/07/16 09:35 Dose: 40 mg Rosuvastatin Calcium (Crestor) 10 mg PO HS [facility] Last Admin: 12/06/16 22:50 Dose: 10 mg Fluticasone/Salmeterol (Advair Diskus 250/50) 1 puff INH RQ12 [facility] Last Admin: 12/07/16 06:55 Dose: 1 puff Tiotropium [place] (Spiriva) 18 mcg IH RQD [facility] Last Admin: 12/07/16 06:55 Dose: 18 mcg Zolpidem Tartrate (Ambien) 5 mg PO HS PRN PRN Reason: Insomnia Last Admin: 12/06/16 22:54 Dose: 5 mg - Labs Labs: 12/07/16 06:24 12/07/16 06:19 PT 11.6 SECONDS (9.7-12.2) 12/04/16 17:08 INR 1.0 12/04/16 17:08 APTT 32 SECONDS (21-34) 12/04/16 17:08 - Constitutional Appears: No Acute Distress - Head Exam Head Exam: NORMAL INSPECTION - Eye Exam Eye Exam: Normal appearance Pupil Exam: NORMAL ACCOMODATION - ENT Exam ENT Exam: Normal Exam - Neck Exam Neck Exam: Normal Inspection - Respiratory Exam Respiratory Exam: Clear to Ausculation Bilateral, NORMAL BREATHING PATTERN - Cardiovascular Exam Cardiovascular Exam: REGULAR RHYTHM - GI/Abdominal Exam GI & Abdominal Exam: Soft, Normal Bowel Sounds - Rectal Exam Rectal Exam: Deferred - Extremities Exam Extremities Exam: Normal Inspection - Back Exam Back Exam: NORMAL INSPECTION - Neurological Exam Neuro motor strength exam: Left Upper Extremity: 5, Right Upper Extremity: 5, Left Lower Extremity: 4, Right Lower Extremity: 4 - Psychiatric Exam Psychiatric exam: Normal Affect, Normal Mood - Skin Skin Exam: Dry, Intact, Normal Color, Warm Assessment and Plan (1) Symptomatic bradycardia Status: Resolved (2) Pneumothorax Assessment & Plan: resolving Status: Acute (3) Chest tightness or pressure Status: Resolved (4) Hypertension Assessment & Plan: stable Status: Chronic
--- NOTE | 2016-12-07 17:51 | CP.CCUPN ---
CCU Subjective - Physician Review Events Since Last Encounter (Free Text): 12/07/16 17:51 Patient is doing well at this time. No chest pain or shortness of breath. Not in any distress. This morning chest x-ray showing no evidence of any residual pneumothorax Clinical stable. Labs reviewed Chest x-ray nonspecific. Assessment and recommendation: 76-year-old female with a history of arrhythmias, status post a pacemaker, complicated with the right-sided pneumothorax. Clinical stable. Continue the current treatment. Transferred to floor CCU Objective - Vital Signs / Intake & Output Vital Signs (Last 4 hours): Vital Signs Pulse Resp BP Pulse Ox 12/07/16 17:00 92 H 18 95 12/07/16 16:31 88 29 H 152/63 H 93 L 12/07/16 16:00 85 29 H 95 12/07/16 15:00 91 H 13 95 12/07/16 14:00 89 30 H 94 L Intake and Output (Last 8hrs): Intake & Output 12/07/16 12/07/16 12/07/16 06:59 14:59 22:59 Intake Total 0 400 250 Output Total 400 600 Balance -400 -200 250 Intake: Oral 0 400 250 Output: Urine 400 600 Urine, Voided 400 600 Other: # Voids Urine, Voided 1 - Medications Active Medications: Active Medications Generic Name Dose Route Start Last Admin Trade Name Freq PRN Reason Stop Dose Admin Albuterol 2 puff 12/04/16 19:29 Ventolin Hfa 90 Mcg/Actuation (8 G) IH Q4H PRN Wheezing Albuterol Sulfate 2.5 mg 12/05/16 20:00 12/07/16 14:34 Albuterol 0.083% Inhal [place] (2.5 Mg/3 Ml) Ud IH 2.5 mg RQ6 [facility] Administration Heparin Sodium (Porcine) 5,000 units 12/05/16 14:00 12/07/16 13:50 Heparin SC 5,000 units Q8 [facility] Administration Enalaprilat 2.5 mg/ Sodium 52 mls @ 156 mls/hr 12/06/16 20:25 Chloride IV Q8H PRN Loperamide HCl 1 mg 12/04/16 19:45 Imodium PO TID PRN DIARRHEA Loratadine 10 mg 12/06/16 10:00 12/07/16 09:35 Claritin PO 10 mg DAILY [facility] Administration Losartan Potassium 50 mg 12/07/16 10:00 12/07/16 09:35 Cozaar PO 50 mg DAILY [facility] Administration Montelukast Sodium 10 mg 12/04/16 22:00 12/06/16 22:51 Singulair PO 10 mg HS [facility] Administration Morphine Sulfate 2 mg 12/06/16 19:46 12/06/16 22:51 Morphine IV 2 mg Q4 PRN Administration pain, mod to sev (4-10) Ondansetron HCl 4 mg 12/05/16 19:00 12/05/16 19:03 Zofran Inj IVP 4 mg DAILY@ONCE PRN Administration Nausea/Vomiting Pantoprazole Sodium 40 mg 12/05/16 10:00 12/07/16 09:35 Protonix Ec Tab PO 40 mg DAILY [facility] Administration Rosuvastatin Calcium 10 mg 12/04/16 22:00 12/06/16 22:50 Crestor PO 10 mg HS [facility] Administration Fluticasone/Salmeterol 1 puff 12/06/16 20:00 12/07/16 06:55 Advair Diskus 250/50 INH 1 puff RQ12 [facility] Administration Tiotropium [place] 18 mcg 12/06/16 14:30 12/07/16 06:55 Spiriva IH 18 mcg RQD [facility] Administration Zolpidem Tartrate 5 mg 12/06/16 22:00 12/06/16 22:54 Ambien PO 5 mg HS PRN Administration Insomnia - Patient Studies Lab Studies: Microbiology Studies 12/05/16 20:35 MRSA Culture (Admit) - Final Naris MRSA NOT DETECTED Lab Studies 12/07/16 12/07/16 Range/Units 06:24 06:19 WBC 7.4 (4.8-10.8) K/uL RBC 3.99 (3.80-5.20) Mil/uL Hgb 11.2 (11.0-16.0) g/dL Hct 34.4 (34.0-47.0) % MCV 86.1 (81.0-99.0) fL MCH 28.1 (27.0-31.0) pg MCHC 32.6 L (33.0-37.0) g/dL RDW 14.4 (11.5-14.5) % Plt Count 157 (130-400) K/uL MPV 10.0 (7.2-11.7) fL Sodium 141 (132-148) mmol/L Potassium 4.0 (3.6-5.2) mmol/L Chloride 100 (98-107) mmol/L Carbon Dioxide 28 (22-30) mmol/L Anion Gap 17 (10-20) BUN 12 (7-17) mg/dL Creatinine 0.6 L (0.7-1.2) MG/DL Est GFR ( Amer) > 60 Est GFR (Non-Af Amer) > 60 Random Glucose 131 H (65-105) mg/dL Calcium 8.7 (8.6-10.4) mg/dl Phosphorus 2.6 (2.5-4.5) mg/dL Magnesium 2.2 (1.6-2.3) mg/dL Total Bilirubin 1.0 (0.2-1.3) mg/dL AST 39 H (14-36) U/L ALT 45 (9-52) U/L Alkaline Phosphatase 63 (38-126) U/L NT-Pro-B Natriuret Pep 343 (0-900) pg/mL Total Protein 6.3 (6.3-8.3) g/dL Albumin 3.4 L (3.5-5.0) g/dL Globulin 2.8 (2.2-3.9) gm/dL Albumin/Globulin Ratio 1.2 (1.0-2.1) Laboratory Results - last 24 hr 12/07/16 12/07/16 06:19 06:24 WBC 7.4 RBC 3.99 Hgb 11.2 Hct 34.4 MCV 86.1 MCH 28.1 MCHC 32.6 L RDW 14.4 Plt Count 157 MPV 10.0 Sodium 141 Potassium 4.0 Chloride 100 Carbon Dioxide 28 Anion Gap 17 BUN 12 Creatinine 0.6 L Est GFR ( Amer) > 60 Est GFR (Non-Af Amer) > 60 Random Glucose 131 H Calcium 8.7 Phosphorus 2.6 Magnesium 2.2 Total Bilirubin 1.0 AST 39 H ALT 45 Alkaline Phosphatase 63 NT-Pro-B Natriuret Pep 343 Total Protein 6.3 Albumin 3.4 L Globulin 2.8 Albumin/Globulin Ratio 1.2 Critical Care Progress Note - Nutrition Nutrition: Nutrition Category Date Time Status Regular Diet [DIET] Diets 12/06/16 Lunch Active
--- NOTE | 2016-12-07 19:53 | CP.PCM.PN ---
Subjective - Date & Time of Evaluation Date of Evaluation: 12/07/16 Time of Evaluation: 13:30 - Subjective Subjective: Patient seen and evaluated Feels better Some pain at the chest tube site Objective - Vital Signs/Intake and Output Vital Signs (last 24 hours): Temp Pulse Resp BP Pulse Ox 97.9 F 93 H 30 H 143/57 L 90 L 12/06/16 08:00 12/07/16 18:31 12/07/16 18:31 12/07/16 18:31 12/07/16 18:31 Intake and Output: 12/07/16 12/08/16 18:59 06:59 Intake Total 850 Output Total 900 Balance -50 - Medications Medications: Current Medications Albuterol (Ventolin Hfa 90 Mcg/Actuation (8 G)) 2 puff IH Q4H PRN PRN Reason: Wheezing Albuterol Sulfate (Albuterol 0.083% Inhal [place] (2.5 Mg/3 Ml) Ud) 2.5 mg IH RQ6 [facility] Last Admin: 12/07/16 14:34 Dose: 2.5 mg Heparin Sodium (Porcine) (Heparin) 5,000 units SC Q8 [facility] Last Admin: 12/07/16 13:50 Dose: 5,000 units Enalaprilat 2.5 mg/ Sodium (Chloride) 52 mls @ 156 mls/hr IV Q8H PRN Loperamide HCl (Imodium) 1 mg PO TID PRN PRN Reason: DIARRHEA Loratadine (Claritin) 10 mg PO DAILY [facility] Last Admin: 12/07/16 09:35 Dose: 10 mg Losartan Potassium (Cozaar) 50 mg PO DAILY [facility] Last Admin: 12/07/16 09:35 Dose: 50 mg Montelukast Sodium (Singulair) 10 mg PO HS [facility] Last Admin: 12/06/16 22:51 Dose: 10 mg Morphine Sulfate (Morphine) 2 mg IV Q4 PRN PRN Reason: pain, mod to sev (4-10) Last Admin: 12/06/16 22:51 Dose: 2 mg Ondansetron HCl (Zofran Inj) 4 mg IVP DAILY@ONCE PRN PRN Reason: Nausea/Vomiting Last Admin: 12/05/16 19:03 Dose: 4 mg Pantoprazole Sodium (Protonix Ec Tab) 40 mg PO DAILY [facility] Last Admin: 12/07/16 09:35 Dose: 40 mg Rosuvastatin Calcium (Crestor) 10 mg PO HS [facility] Last Admin: 12/06/16 22:50 Dose: 10 mg Fluticasone/Salmeterol (Advair Diskus 250/50) 1 puff INH RQ12 [facility] Last Admin: 12/07/16 06:55 Dose: 1 puff Tiotropium [place] (Spiriva) 18 mcg IH RQD [facility] Last Admin: 12/07/16 06:55 Dose: 18 mcg Zolpidem Tartrate (Ambien) 5 mg PO HS PRN PRN Reason: Insomnia Last Admin: 12/06/16 22:54 Dose: 5 mg - Labs Labs: 12/07/16 06:24 12/07/16 06:19 PT 11.6 SECONDS (9.7-12.2) 12/04/16 17:08 INR 1.0 12/04/16 17:08 APTT 32 SECONDS (21-34) 12/04/16 17:08 - Head Exam Head Exam: ATRAUMATIC, NORMAL INSPECTION, NORMOCEPHALIC - Eye Exam Eye Exam: EOMI, PERRL Pupil Exam: NORMAL ACCOMODATION - ENT Exam ENT Exam: Mucous Membranes Moist, Normal Exam - Neck Exam Neck Exam: Full ROM, Normal Inspection - Respiratory Exam Respiratory Exam: Clear to Ausculation Bilateral, NORMAL BREATHING PATTERN - Cardiovascular Exam Cardiovascular Exam: REGULAR RHYTHM, +S1, +S2 - Extremities Exam Extremities Exam: Full ROM - Neurological Exam Neurological Exam: Alert, Awake, Oriented x3 - Psychiatric Exam Psychiatric exam: Normal Mood - Skin Skin Exam: Warm Assessment and Plan - Assessment and Plan (Free Text) Assessment: 1. S/P Heart block s/p PPM 2. Resolved pneumothorax 3. HTN 4. Hyperlipidemia Possible d/c tomorrow OP patient f/u with me in 1 week
[2016-12-08] MEDS: Albuterol 0.083% Inhal Sol (2.5 mg/3 mL) UD IH SCH ×4 (01:14→19:54)
[2016-12-08] MEDS: Tiotropium 18 mcg Cap For Inhalation IH SCH (07:05)
[2016-12-08] MEDS: Fluticasone-Salmeterol 250-50mcg Diskus INH SCH ×2 (07:05→19:54)
--- NOTE | 2016-12-08 09:03 | CP.PCM.PN ---
Subjective - Date & Time of Evaluation Date of Evaluation: 12/08/16 Time of Evaluation: 08:52 - Subjective Subjective: Patient was seen and examined at bedside in no acute distress. Patient was OOB, sitting in chair comfortably. Patient reports feeling sore in her right chest but otherwise has no complaints. Patient denies chest pain, abdominal pain, shortness of breath, nausea, cough, vomiting, diarrhea, dysuria, and leg edema. Objective - Vital Signs/Intake and Output Vital Signs (last 24 hours): Temp Pulse Resp BP Pulse Ox 99.1 F 91 H 27 H 158/82 H 94 L 12/08/16 04:00 12/08/16 04:20 12/08/16 04:20 12/08/16 04:20 12/08/16 04:20 Intake and Output: 12/08/16 12/08/16 06:59 18:59 Intake Total 300 Output Total 1100 Balance -800 - Medications Medications: Current Medications Albuterol (Ventolin Hfa 90 Mcg/Actuation (8 G)) 2 puff IH Q4H PRN PRN Reason: Wheezing Albuterol Sulfate (Albuterol 0.083% Inhal Snwo (2.5 Mg/3 Ml) Ud) 2.5 mg IH RQ6 [facility] Last Admin: 12/08/16 01:14 Dose: 2.5 mg Heparin Sodium (Porcine) (Heparin) 5,000 units SC Q8 [facility] Last Admin: 12/08/16 05:35 Dose: 5,000 units Enalaprilat 2.5 mg/ Sodium (Chloride) 52 mls @ 156 mls/hr IV Q8H PRN Loperamide HCl (Imodium) 1 mg PO TID PRN PRN Reason: DIARRHEA Loratadine (Claritin) 10 mg PO DAILY [facility] Last Admin: 12/07/16 09:35 Dose: 10 mg Losartan Potassium (Cozaar) 50 mg PO DAILY [facility] Last Admin: 12/07/16 09:35 Dose: 50 mg Montelukast Sodium (Singulair) 10 mg PO HS [facility] Last Admin: 12/07/16 21:50 Dose: 10 mg Morphine Sulfate (Morphine) 2 mg IV Q4 PRN PRN Reason: pain, mod to sev (4-10) Last Admin: 12/06/16 22:51 Dose: 2 mg Ondansetron HCl (Zofran Inj) 4 mg IVP DAILY@ONCE PRN PRN Reason: Nausea/Vomiting Last Admin: 12/05/16 19:03 Dose: 4 mg Pantoprazole Sodium (Protonix Ec Tab) 40 mg PO DAILY [facility] Last Admin: 12/07/16 09:35 Dose: 40 mg Rosuvastatin Calcium (Crestor) 10 mg PO HS [facility] Last Admin: 12/07/16 21:50 Dose: 10 mg Fluticasone/Salmeterol (Advair Diskus 250/50) 1 puff INH RQ12 [facility] Last Admin: 12/08/16 07:05 Dose: 1 puff Tiotropium [place] (Spiriva) 18 mcg IH RQD [facility] Last Admin: 12/08/16 07:05 Dose: 18 mcg Zolpidem Tartrate (Ambien) 5 mg PO HS PRN PRN Reason: Insomnia Last Admin: 12/06/16 22:54 Dose: 5 mg - Labs Labs: 12/07/16 06:24 12/07/16 06:19 PT 11.6 SECONDS (9.7-12.2) 12/04/16 17:08 INR 1.0 12/04/16 17:08 APTT 32 SECONDS (21-34) 12/04/16 17:08 - Head Exam Head Exam: ATRAUMATIC, NORMAL INSPECTION - Eye Exam Eye Exam: EOMI, Normal appearance - ENT Exam ENT Exam: Mucous Membranes Moist - Respiratory Exam Respiratory Exam: Decreased Breath Sounds, Clear to Ausculation Bilateral, NORMAL BREATHING PATTERN. absent: Rales, Rhonchi, Wheezes Additional comments: s/p chest tube removal; clean, dry dressing in place. - Cardiovascular Exam Cardiovascular Exam: Tachycardia, REGULAR RHYTHM, +S1, +S2 - GI/Abdominal Exam GI & Abdominal Exam: Soft, Normal Bowel Sounds. absent: Distended, Firm, Tenderness - Extremities Exam Extremities Exam: absent: Pedal Edema, Tenderness - Neurological Exam Neurological Exam: Alert, Awake, Oriented x3 - Psychiatric Exam Psychiatric exam: Normal Affect, Normal Mood - Skin Skin Exam: Dry, Intact, Normal Color, Warm Assessment and Plan (1) Pneumothorax Assessment & Plan: 76 F with PMH of s/p pacemaker placement, CAD s/p coronary stent placement, HTN , hypercholesterolemia with R pneumothorax, s/p chest tube placement and removal. - CXR showed trace pneumothorax has further reduced. S/p chest tube removal - Continue current treatment. Status: Acute
[2016-12-08] MEDS: Pantoprazole 40 mg EC Tab PO SCH (10:07)
--- NOTE | 2016-12-08 14:00 | CP.PCM.PN ---
Subjective - Date & Time of Evaluation Date of Evaluation: 12/08/16 Time of Evaluation: 13:59 - Subjective Subjective: Pt s/e. No c/o. Wound-no erythema or drainage. cxr-No done today-trace pneumo.-which is not clinically significant(d/w Dr. Mcgrath). a/p: dc home as planned. Remove sutures in one wk. Objective - Vital Signs/Intake and Output Vital Signs (last 24 hours): Temp Pulse Resp BP Pulse Ox 99.1 F 93 H 23 155/65 H 90 L 12/08/16 04:00 12/08/16 12:00 12/08/16 12:00 12/08/16 10:14 12/08/16 12:00 Intake and Output: 12/08/16 12/08/16 06:59 18:59 Intake Total 300 Output Total 1100 Balance -800 - Medications Medications: Current Medications Albuterol (Ventolin Hfa 90 Mcg/Actuation (8 G)) 2 puff IH Q4H PRN PRN Reason: Wheezing Albuterol Sulfate (Albuterol 0.083% Inhal [place] (2.5 Mg/3 Ml) Ud) 2.5 mg IH RQ6 [facility] Last Admin: 12/08/16 13:04 Dose: 2.5 mg Heparin Sodium (Porcine) (Heparin) 5,000 units SC Q8 [facility] Last Admin: 12/08/16 05:35 Dose: 5,000 units Enalaprilat 2.5 mg/ Sodium (Chloride) 52 mls @ 156 mls/hr IV Q8H PRN Loperamide HCl (Imodium) 1 mg PO TID PRN PRN Reason: DIARRHEA Loratadine (Claritin) 10 mg PO DAILY [facility] Last Admin: 12/08/16 10:06 Dose: 10 mg Losartan Potassium (Cozaar) 50 mg PO DAILY [facility] Last Admin: 12/08/16 10:06 Dose: 50 mg Montelukast Sodium (Singulair) 10 mg PO HS [facility] Last Admin: 12/07/16 21:50 Dose: 10 mg Morphine Sulfate (Morphine) 2 mg IV Q4 PRN PRN Reason: pain, mod to sev (4-10) Last Admin: 12/06/16 22:51 Dose: 2 mg Ondansetron HCl (Zofran Inj) 4 mg IVP DAILY@ONCE PRN PRN Reason: Nausea/Vomiting Last Admin: 12/05/16 19:03 Dose: 4 mg Pantoprazole Sodium (Protonix Ec Tab) 40 mg PO DAILY [facility] Last Admin: 12/08/16 10:07 Dose: 40 mg Rosuvastatin Calcium (Crestor) 10 mg PO HS [facility] Last Admin: 12/07/16 21:50 Dose: 10 mg Fluticasone/Salmeterol (Advair Diskus 250/50) 1 puff INH RQ12 [facility] Last Admin: 12/08/16 07:05 Dose: 1 puff Tiotropium [place] (Spiriva) 18 mcg IH RQD [facility] Last Admin: 12/08/16 07:05 Dose: 18 mcg Zolpidem Tartrate (Ambien) 5 mg PO HS PRN PRN Reason: Insomnia Last Admin: 12/06/16 22:54 Dose: 5 mg - Labs Labs: 12/07/16 06:24 12/07/16 06:19 PT 11.6 SECONDS (9.7-12.2) 12/04/16 17:08 INR 1.0 12/04/16 17:08 APTT 32 SECONDS (21-34) 12/04/16 17:08
[2016-12-08 16:45] VITALS: TEMP 99.6
[2016-12-08 16:46] VITALS: BP 152/72; PULSE 96; RESP 32; O2SAT 91
--- NOTE | 2016-12-18 11:02 | OP ---
PROCEDURE DATE: 12/05/2016 PREOPERATIVE DIAGNOSIS: Sick sinus syndrome. POSTOPERATIVE DIAGNOSIS: Sick sinus syndrome. PROCEDURE: Pacemaker implantation. SURGEON: Amish Cardona MD DOUGH MIXER HELPER: None. TYPE OF ANESTHESIA: Monitored care. ESTIMATED BLOOD LOSS: 20 mL COMPLICATIONS: Pneumothorax. SPECIMEN: None. CLINICAL HISTORY: This is a very pleasant 76-year-old woman with a cardiovascular history significant for hypertension, hypercholesterolemia, coronary artery disease with previous percutaneous coronary intervention. Medical history also includes breast cancer with previous bilateral implants and she has been plagued by dyspnea on exertion for several months and was found to have no significant coronary artery disease, no significant valvular disease, but has significant bradycardia due to 2:1 block and resultant ventricular response of 40. She now presents for pacemaker implantation. DESCRIPTION OF PROCEDURE: The patient was brought to the cardiac electrophysiology lab, prepped and draped in standard fashion. Continuous blood pressure, heart rate checks, electrocardiogram, and pulse ox monitored throughout procedure. As she is left-handed, she requested implants on the right side. The area over the right chest was prepped and draped in standard fashion. Continuous blood pressure, heart rate checks, electrocardiogram performed throughout the procedure. A #10 blade was used to make a 3 cm incision in the deltopectoral groove. Careful blunt dissection and electrocautery was performed to identify the saphenous vein; however, it was diminutive in size and not used. Percutaneous wire was advanced via the right axillary vein to the right atrium. A second percutaneous wire was advanced by the right axillary vein to the radiation. An introducer sheath was advanced for the first guidewire and pacemaker lead was advanced under fluoroscopic guidance to the right ventricular apex for appropriate pacing, sensing thresholds were obtained. A second introducer sheath was advanced over second guidewire and an active fixation pacing was advanced to the right atrial appendage with appropriate pacing sensing threshold was obtained. Individual carried the sheath to underlying fascia. A pocket was then created beneath the muscle layer with great care taken to avoid damaging or interfering or touching the previously placed implant. The pocket was irrigated with bacitracin containing saline solution and nonbleeding field observed. The leads were connected to a pacemaker generator, which was placed in the pocket and secured to underlying fascia with an 0-6 stitch. Deep subcutaneous tissue was closed with interrupted stitches of 2-0 Vicryl. Superficial subcutaneous tissue was closed with interrupted stitches of 3-0 Vicryl. Subcuticular tissue was closed with running stitch of 4-0 Monocryl. Dermabond was applied to incision as well as a pressure dressing. The patient tolerated the procedure well and there were no complications. FINDINGS: 1. Successful dual chamber pacemaker implantation via axillary vein puncture. 2. Bradycardia with 2:1 AV block. 3. Likely pneumothorax, periprocedural, with aspiration of air during access attempt. PLAN: 1. Chest x-ray to assess for pneumothorax and to confirm lead placement. 2. No contraindication of beta og or calcium channel og if needed. Amish Cardona MD
== END 2016-12-08 20:30 | disposition home or self-care (01) | DRG 243 ==
LOC: C.ER 16:17 → C.9E 17:38 → C.6T 18:32 → C.9I 12-05 19:28
PROVIDERS: ADMIT Family Medicine; ATTEND Family Medicine
PROC: 0JH606Z Insertion of Pacemaker, Dual Chamber into Chest Subcutaneous Tissue and Fascia, Open Approach (ICD-10-PCS; 2016-12-05)
PROC: 02HK3JZ Insertion of Pacemaker Lead into Right Ventricle, Percutaneous Approach (ICD-10-PCS; 2016-12-05)
PROC: 02H63JZ Insertion of Pacemaker Lead into Right Atrium, Percutaneous Approach (ICD-10-PCS; 2016-12-05)
PROC: 0W9930Z Drainage of Right Pleural Cavity with Drainage Device, Percutaneous Approach (ICD-10-PCS; principal; 2016-12-05 16:15)
DX: I25.10 Atherosclerotic heart disease of native coronary artery without angina pectoris (principal); T79.7XXA Traumatic subcutaneous emphysema, initial encounter; R00.1 Bradycardia, unspecified; J95.811 Postprocedural pneumothorax; J20.9 Acute bronchitis, unspecified; I10 Essential (primary) hypertension; Z95.0 Presence of cardiac pacemaker; Z96.642 Presence of left artificial hip joint; E78.5 Hyperlipidemia, unspecified; E78.00 Pure hypercholesterolemia, unspecified; K21.9 Gastro-esophageal reflux disease without esophagitis; Z98.82 Breast implant status; Z85.3 Personal history of malignant neoplasm of breast; Z95.5 Presence of coronary angioplasty implant and graft